=== PATIENT | female | born 1935 | race Caucasian/White ===

== ENCOUNTER 2017-02-25 05:15 | Emergency (ER) | payer MEDICARE, BC ==
[2017-02-25 05:32] VITALS: BP 183/75
[2017-02-25] MEDS ORDERED: Amoxicillin 250 MG Cap PO ONE (05:39)
--- NOTE | 2017-02-25 05:45 | EDM.PDOC ---
ED HPI GENERAL MEDICAL PROBLEM - General Chief Complaint: ENT Problem Stated Complaint: EAR ACHE Time Seen by Provider: 02/25/17 05:40 Source of Information: Reports: Patient History Limitations: Reports: No Limitations - History of Present Illness INITIAL COMMENTS - FREE TEXT/NARRATIVE: c/o episodic sharp stabbing pain in right ear all night long. Right Ear Pain Score (Numeric/FACES): 9 - Related Data Allergies Allergy/AdvReac Type Severity Reaction Status Date / Time oxycodone AdvReac Disorientat Verified 02/25/17 05:26 ion ENVIRONMENTAL Allergy Sneezing Uncoded 02/25/17 05:26 Home Meds: Home Meds Acetaminophen [Tylenol Arthritis Pain] 1 tab PO Q8H PRN 11/13/14 [History] Atenolol [Tenormin] 25 mg PO DAILY 11/13/14 [History] Calcium Carbonate/Vitamin D3 [Calcium 250+D] 1 tab PO BID 11/13/14 [History] Cranberry 1 cap PO DAILY 11/13/14 [History] Ferrous Sulfate 1 tab PO DAILY 11/13/14 [History] Fluticasone/Salmeterol [Advair 250-50 Diskus] 1 puff INH DAILY 11/13/14 [History ] Levothyroxine 25 mcg PO ACBREAKFAST 11/13/14 [History] Melatonin 3 tab PO DAILY PRN 11/13/14 [History] Multivitamin with Minerals [Multiple Vitamin] 1 tab PO DAILY 11/13/14 [History] Nitroglycerin [Nitrostat] 1 tab SL Q6H PRN 11/13/14 [History] Omeprazole [Prilosec] 20 mg PO DAILY 11/13/14 [History] Potassium Chloride [Klor-Con M10] 10 meq PO DAILY 11/13/14 [History] Venlafaxine HCl [Venlafaxine ER] 37.5 mg PO DAILY 11/13/14 [History] Celecoxib 200 mg PO DAILY PRN 05/05/16 [History] Clotrimazole/Betamethasone Dip [Lotrisone Cream] 1 applic TOP DAILY 05/05/16 [ History] Lactobacillus Acidophilus [Acidophilus] 1 tab PO DAILY 05/10/16 [History] Albuterol [Proventil HFA] 6.7 gm INH Q4H PRN 07/23/17 [History] Past Medical History Cardiovascular History: Reports: Hypertension Respiratory History: Reports: Asthma Gastrointestinal History: Reports: GERD Other Gastrointestinal History: Hamlet's ulcer, peptic ulcer stricture Genitourinary History: Reports: Chronic Renal Insuffiency [employer] History: Reports: Musculoskeletal History: Reports: Arthritis Neurological History: Reports: None Psychiatric History: Reports: None Endocrine/Metabolic History: Reports: Hypothyroidism Hematologic History: Reports: B12 Deficiency Immunologic History: Reports: None Oncologic (Cancer) History: Reports: None Other Oncologic History: skin ca Dermatologic History: Reports: None - Infectious Disease History Infectious Disease History: Reports: Chicken Pox, Measles - Past Surgical History HEENT Surgical History: Reports: Cataract Surgery Female Surgical History: Reports: Breast Biopsy, Oophorectomy Neurological Surgical History: Reports: None Musculoskeletal Surgical History: Reports: Joint Replacement, Knee Replacement Social & Family History - Family History HEENT: Reports: Glaucoma Cardiac: Reports: [place] Respiratory: Reports: Asthma GI: Reports: None : Reports: None OBGYN: Reports: None Musculoskeletal: Reports: Arthritis Neurological: Reports: None Psychiatric: Reports: None Hematologic: Reports: None Dermatologic: Reports: None Oncologic: Reports: Colon - Tobacco Use Smoking Status *Q: Former Smoker Years of Tobacco use: 20 Used Tobacco, but Quit: Yes Month Tobacco Last Used: quit 40 years ago Second Hand Smoke Exposure: No - Caffeine Use Caffeine Use: Reports: Tea - Alcohol Use Days Per Week of Alcohol Use: 0 - Recreational Drug Use Recreational Drug Use: No Drug Use in Last 12 Months: No ED ROS ENT - Review of Systems Review Of Systems: ROS reveals no pertinent complaints other than HPI. ED EXAM, ENT - Physical Exam Exam: See Below Exam Limited By: No Limitations General Appearance: Alert, WD/WN, No Apparent Distress Ears: Hearing Grossly Normal Mouth/Throat: Normal Inspection, Normal Oropharynx Head: Atraumatic Neck: Non-Tender, Full Range of Motion Respiratory/Chest: No Respiratory Distress Cardiovascular: Regular Rate, Rhythm GI/Abdominal: Soft, Non-Tender Neurological: Alert, Oriented, Normal Cognition, Normal Gait, No Motor/Sensory Deficits Psychiatric: Normal Affect, Normal Mood Skin: Warm, Dry Lymphatic: No Adenopathy Course - Vital Signs Last Recorded V/S: Last Vital Signs Temp 36.3 C 02/25/17 05:18 Pulse 88 02/25/17 05:18 Resp 18 02/25/17 05:18 BP 183/75 H 02/25/17 05:18 Pulse Ox 95 02/25/17 05:18 - Orders/Labs/Meds Meds: Medications Discontinued Medications Generic Name Dose Route Start Last Admin Trade Name Eufemia PRN Reason Stop Dose Admin Amoxicillin 250 mg 02/25/17 05:39 Amoxil PO 02/25/17 05:40 ONETIME ONE Departure - Departure Time of Disposition: 05:43 Disposition: Home, Self-Care 01 Condition: Good Clinical Impression: Serous otitis media Qualifiers: Chronicity: acute Laterality: right Recurrence: not specified as recurrent Qualified Code(s): H65.01 - Acute serous otitis media, right ear - Discharge Information Instructions: Serous Otitis Media Forms: ED Department Discharge Additional Instructions: 1) follow up at clinic rx given; amoxil 250mg tid x 30
== END 2017-02-25 05:49 | disposition home or self-care (01) ==
LOC: DL.ED 05:15
DX: H65.01 Acute serous otitis media, right ear (principal); J45.909 Unspecified asthma, uncomplicated; K21.9 Gastro-esophageal reflux disease without esophagitis; I12.9 Hypertensive chronic kidney disease with stage 1 through stage 4 chronic kidney disease, or unspecified chronic kidney disease; N18.9 Chronic kidney disease, unspecified; E03.9 Hypothyroidism, unspecified; M19.90 Unspecified osteoarthritis, unspecified site; Z98.49 Cataract extraction status, unspecified eye; Z96.659 Presence of unspecified artificial knee joint; Z91.048 Other nonmedicinal substance allergy status; Z88.5 Allergy status to narcotic agent; Z79.899 Other long term (current) drug therapy; Z87.891 Personal history of nicotine dependence
CPT/HCPCS: 99282; A9270

== ENCOUNTER 2017-09-25 07:56 | Emergency (ER) | payer MEDICARE, BC ==
[2017-09-25 08:21] VITALS: BP 193/83
[2017-09-25] MEDS ORDERED: Albuterol/Ipratropium 3.0-0.5 MG/3 ML Neb Soln NEB ONE (08:30)
--- NOTE | 2017-09-25 08:39 | EDM.PDOC ---
ED HPI GENERAL MEDICAL PROBLEM - General Chief Complaint: Respiratory Problem Stated Complaint: ? INFLUENZA Time Seen by Provider: 09/25/17 08:25 Source of Information: Reports: Patient History Limitations: Reports: No Limitations - History of Present Illness INITIAL COMMENTS - FREE TEXT/NARRATIVE: This 82 yo female patient reports to the ED due to a continued cough and increased shortness of breath. The patient reports her symptoms started on Sunday (09/22/17). The patient was seen in the [facility] yesterday, given a shot of steroid, and given a shot of Rocephin. The patient was also given a script for a Medrol dose pack and Azithromycin (which she has been taking). The patient reports she also has COPD and has been doing neb treatments 3 times per day. 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: Other Medication(s) - Related Data Allergies Allergy/AdvReac Type Severity Reaction Status Date / Time oxycodone AdvReac Disorientat Verified 02/25/17 05:26 ion ENVIRONMENTAL Allergy Sneezing Uncoded 02/25/17 05:26 Home Meds: Home Meds Acetaminophen [Tylenol Arthritis Pain] 1 tab PO Q8H PRN 11/13/14 [History] Atenolol [Tenormin] 25 mg PO DAILY 11/13/14 [History] Calcium Carbonate/Vitamin D3 [Calcium 250+D] 1 tab PO BID 11/13/14 [History] Cranberry 1 cap PO DAILY 11/13/14 [History] Ferrous Sulfate 1 tab PO DAILY 11/13/14 [History] Fluticasone/Salmeterol [Advair 250-50 Diskus] 1 puff INH DAILY 11/13/14 [History ] Levothyroxine 25 mcg PO ACBREAKFAST 11/13/14 [History] Melatonin 3 tab PO DAILY PRN 11/13/14 [History] Multivitamin with Minerals [Multiple Vitamin] 1 tab PO DAILY 11/13/14 [History] Nitroglycerin [Nitrostat] 1 tab SL Q6H PRN 11/13/14 [History] Omeprazole [Prilosec] 20 mg PO DAILY 11/13/14 [History] Potassium Chloride [Klor-Con M10] 10 meq PO DAILY 11/13/14 [History] Venlafaxine HCl [Venlafaxine ER] 37.5 mg PO DAILY 11/13/14 [History] Celecoxib 200 mg PO DAILY PRN 05/05/16 [History] Clotrimazole/Betamethasone Dip [Lotrisone Cream] 1 applic TOP DAILY 05/05/16 [ History] Albuterol [Proventil HFA] 6.7 gm INH Q4H PRN 02/25/17 [History] Azithromycin [IJD: Azithromycin] 1 tab PO DAILY 09/25/17 [History] Codeine/Promethazine HCl [Promethazine-Codeine Syrup] 1 tsp PO ASDIRECTED PRN [History] methylPREDNISolone [Medrol] 1 tab PO ASDIRECTED 09/25/17 [History] Past Medical History Cardiovascular History: Reports: Hypertension Respiratory History: Reports: Asthma, COPD Gastrointestinal History: Reports: GERD Other Gastrointestinal History: Hamlet's ulcer, peptic ulcer stricture Genitourinary History: Reports: Chronic Renal Insuffiency [employer] History: Reports: Musculoskeletal History: Reports: Arthritis Neurological History: Reports: None Psychiatric History: Reports: None Endocrine/Metabolic History: Reports: Hypothyroidism Hematologic History: Reports: B12 Deficiency Immunologic History: Reports: None Oncologic (Cancer) History: Reports: None Other Oncologic History: skin ca Dermatologic History: Reports: None - Infectious Disease History Infectious Disease History: Reports: Chicken Pox, Measles - Past Surgical History HEENT Surgical History: Reports: Cataract Surgery Female Surgical History: Reports: Breast Biopsy, Oophorectomy Neurological Surgical History: Reports: None Musculoskeletal Surgical History: Reports: Joint Replacement, Knee Replacement Social & Family History - Family History HEENT: Reports: Glaucoma Cardiac: Reports: [place] Respiratory: Reports: Asthma GI: Reports: None : Reports: None OBGYN: Reports: None Musculoskeletal: Reports: Arthritis Neurological: Reports: None Psychiatric: Reports: None Hematologic: Reports: None Dermatologic: Reports: None Oncologic: Reports: Colon - Tobacco Use Smoking Status *Q: Former Smoker Years of Tobacco use: 20 Used Tobacco, but Quit: Yes Month Tobacco Last Used: quit 40 years ago Second Hand Smoke Exposure: No - Caffeine Use Caffeine Use: Reports: Tea - Alcohol Use Days Per Week of Alcohol Use: 0 - Recreational Drug Use Recreational Drug Use: No Drug Use in Last 12 Months: No ED ROS GENERAL - Review of Systems Review Of Systems: ROS reveals no pertinent complaints other than HPI. ED EXAM, GENERAL - Physical Exam Exam: See Below Exam Limited By: No Limitations General Appearance: Alert, WD/WN, Moderate Distress Eye Exam: Bilateral Eye: EOMI, Normal Inspection, PERRL Ears: Normal External Exam, Normal Canal, Hearing Grossly Normal, Normal TMs Nose: Normal Inspection, Normal Mucosa, No Blood Throat/Mouth: Normal Inspection, Normal Lips, Normal Teeth, Normal Gums, Normal Oropharynx, Normal Voice, No Airway Compromise Head: Atraumatic, Normocephalic Neck: Normal Inspection, Supple, Non-Tender, Full Range of Motion Respiratory/Chest: Decreased Breath Sounds, Rhonchi, Wheezing Cardiovascular: Normal Peripheral Pulses, Regular Rate, Rhythm, No Edema, No Gallop, No JVD, No Murmur, No Rub GI/Abdominal: Normal Bowel Sounds, Soft, Non-Tender, No Organomegaly, No Distention, No Abnormal Bruit, No Mass (Female) Exam: Deferred Rectal (Female) Exam: Deferred Back Exam: Normal Inspection, Full Range of Motion, NT Extremities: Normal Inspection, Normal Range of Motion, Non-Tender, Normal Capillary Refill, No Pedal Edema Neurological: Alert, Oriented, CN II-XII Intact, Normal Cognition, Normal Gait, Normal Reflexes, No Motor/Sensory Deficits Psychiatric: Normal Affect, Normal Mood Skin Exam: Warm, Dry, Intact, Normal Color, No Rash Lymphatic: No Adenopathy Course - Vital Signs Last Recorded V/S: Last Vital Signs Temp 36.9 C 09/25/17 07:59 Pulse 90 09/25/17 08:40 Resp 20 09/25/17 07:59 BP 193/83 H 09/25/17 07:59 Pulse Ox 94 L 09/25/17 07:59 - Orders/Labs/Meds Orders: Active Orders 24 hr Category Date Time Status RT Aerosol Therapy [RC] ASDIRECTED Care 09/25/17 08:31 Active Chest 2V [CR] Urgent Exams 09/25/17 08:26 Taken Labs: Laboratory Tests 09/25/17 09/25/17 09/25/17 Range/Units 08:38 08:38 08:38 WBC 5.1 (5.0-10.0) 10^3/uL RBC 4.45 (4.2-5.4) 10^6/uL Hgb 13.4 (12.0-16.0) g/dL Hct 40.6 (37.0-47.0) % MCV 91.2 (80-100) fL MCH 30.1 (27.0-34.0) pg MCHC 33.0 (33.0-35.0) g/dL Plt Count 219 (150-450) 10^3/uL Neut % (Auto) 78.1 H (42.2-75.2) % Lymph % (Auto) 13.2 L (20.5-50.1) % Whitfield % (Auto) 8.5 H (2-8) % Eos % (Auto) 0.0 L (1.0-3.0) % Baso % (Auto) 0.2 (0.0-1.0) % Add Manual Diff Yes Neutrophils % (Manual) 75 (42-75) % Band Neutrophils % 5 % Lymphocytes % (Manual) 13 L (20-50) % Monocytes % (Manual) 7 (2-8) % Sodium 135 (135-145) mmol/L Potassium 4.8 (3.6-5.0) mmol/L Chloride 96 L (101-111) mmol/L Carbon Dioxide 27.0 (21.0-31.0) mmol/L Anion Gap 16.8 BUN 16 (7-18) mg/dL Creatinine 0.9 (0.6-1.3) mg/dL Est Cr Clr Drug Dosing 36.80 mL/min Estimated GFR (MDRD) 60 BUN/Creatinine Ratio 17.77 Glucose 145 H (74-105) mg/dL Lactic Acid 2.0 (0.5-2.2) mmol/L Calcium 9.0 (8.4-10.2) mg/dl Total Bilirubin 0.6 (0.2-1.0) mg/dL AST 32 (10-42) IU/L ALT 24 (10-60) IU/L Alkaline Phosphatase 40 L (42-121) IU/L Total Protein 8.2 (6.7-8.2) g/dl Albumin 3.9 (3.2-5.5) g/dl Globulin 4.3 Albumin/Globulin Ratio 0.91 Urine Color (YELLOW) Urine Appearance (CLEAR) Urine pH (5.0-9.0) Ur Specific [place] (1.005-1.030) Urine Protein (NEGATIVE) Urine Glucose (UA) (NEGATIVE) Urine Ketones (NEGATIVE) Urine Occult Blood (NEGATIVE) Urine Nitrite (NEGATIVE) Urine Bilirubin (NEGATIVE) Urine Urobilinogen (0.2-1.0) mg/dL Ur Leukocyte Esterase (NEGATIVE) Urine RBC /HPF Urine WBC (0-5/HPF) /HPF Ur Epithelial Cells /HPF Urine Bacteria (0-FEW/HPF) /HPF Urine Mucus /LPF 09/25/17 Range/Units 09:02 WBC (5.0-10.0) 10^3/uL RBC (4.2-5.4) 10^6/uL Hgb (12.0-16.0) g/dL Hct (37.0-47.0) % MCV (80-100) fL MCH (27.0-34.0) pg MCHC (33.0-35.0) g/dL Plt Count (150-450) 10^3/uL Neut % (Auto) (42.2-75.2) % Lymph % (Auto) (20.5-50.1) % Whitfield % (Auto) (2-8) % Eos % (Auto) (1.0-3.0) % Baso % (Auto) (0.0-1.0) % Add Manual Diff Neutrophils % (Manual) (42-75) % Band Neutrophils % % Lymphocytes % (Manual) (20-50) % Monocytes % (Manual) (2-8) % Sodium (135-145) mmol/L Potassium (3.6-5.0) mmol/L Chloride (101-111) mmol/L Carbon Dioxide (21.0-31.0) mmol/L Anion Gap BUN (7-18) mg/dL Creatinine (0.6-1.3) mg/dL Est Cr Clr Drug Dosing mL/min Estimated GFR (MDRD) BUN/Creatinine Ratio Glucose (74-105) mg/dL Lactic Acid (0.5-2.2) mmol/L Calcium (8.4-10.2) mg/dl Total Bilirubin (0.2-1.0) mg/dL AST (10-42) IU/L ALT (10-60) IU/L Alkaline Phosphatase (42-121) IU/L Total Protein (6.7-8.2) g/dl Albumin (3.2-5.5) g/dl Globulin Albumin/Globulin Ratio Urine Color Yellow (YELLOW) Urine Appearance Clear (CLEAR) Urine pH 6.0 (5.0-9.0) Ur Specific [place] 1.015 (1.005-1.030) Urine Protein Trace H (NEGATIVE) Urine Glucose (UA) Negative (NEGATIVE) Urine Ketones Negative (NEGATIVE) Urine Occult Blood Small H (NEGATIVE) Urine Nitrite Negative (NEGATIVE) Urine Bilirubin Negative (NEGATIVE) Urine Urobilinogen 0.2 (0.2-1.0) mg/dL Ur Leukocyte Esterase Negative (NEGATIVE) Urine RBC 0-5 /HPF Urine WBC Not seen (0-5/HPF) /HPF Ur Epithelial Cells Rare /HPF Urine Bacteria Not seen (0-FEW/HPF) /HPF Urine Mucus Not seen /LPF Meds: Medications Discontinued Medications Generic Name Dose Route Start Last Admin Trade Name Freq PRN Reason Stop Dose Admin Albuterol/Ipratropium 3 ml 09/25/17 08:30 09/25/17 08:39 Duoneb 3.0-0.5 Mg/3 Ml NEB 09/25/17 08:31 3 ml ONETIME ONE Administration Departure - Departure Time of Disposition: 09:22 Disposition: Home, Self-Care 01 Condition: Fair Clinical Impression: URI (upper respiratory infection) Qualifiers: URI type: unspecified URI Qualified Code(s): J06.9 - Acute upper respiratory infection, unspecified - Discharge Information Instructions: Upper Respiratory Infection, Adult, [id number] Forms: ED Department Discharge Care Plan Goals: The patient was advised of the examination, lab and x-ray results during the visit. The patient was encouraged to continue with the medications prescribed by her primary care facility. If the patient has any additional symptoms or concerns, the patient should follow-up with her primary care facility or return to the ED. - My Orders Last 24 Hours: My Active Orders 09/25/17 08:26 Chest 2V [CR] Urgent 09/25/17 08:31 RT Aerosol Therapy [RC] ASDIRECTED - Assessment/Plan Last 24 Hours: My Active Orders 09/25/17 08:26 Chest 2V [CR] Urgent 09/25/17 08:31 RT Aerosol Therapy [RC] ASDIRECTED
--- NOTE | 2017-09-25 09:25 | CR ---
Clinical history: 82-year-old female cough wheezing and shortness of breath. 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 Orthopedic replacement right shoulder. 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 Consultations arch of the aorta. Normal cardiac silhouette without cephalization of flow, signs of alveolar edema or dependent pleural fluid accumulation. No lung mass, hilar lymphadenopathy or focal lobar pneumonia (platelike atelectasis both lung bases). No pneumothorax.
== END 2017-09-25 09:34 | disposition home or self-care (01) ==
LOC: DL.ED 07:56
DX: J06.9 Acute upper respiratory infection, unspecified (principal); I12.9 Hypertensive chronic kidney disease with stage 1 through stage 4 chronic kidney disease, or unspecified chronic kidney disease; N18.9 Chronic kidney disease, unspecified; E03.9 Hypothyroidism, unspecified; Z88.5 Allergy status to narcotic agent; Z79.899 Other long term (current) drug therapy; Z87.891 Personal history of nicotine dependence
CPT/HCPCS: 36415; 71046; 80053; 81001; 83605; 85025; 94640; 99283; 99284

== ENCOUNTER 2020-12-10 13:07 | Emergency (ER) | payer MEDICARE, BC ==
[2020-12-10 13:36] VITALS: BP 162/53; PULSE 92
--- NOTE | 2020-12-10 13:40 | EDM.PDOC ---
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 Pt states she has minimal pain. Denies being on Aspirin or blood thinners. Denies LOC, neck pain, or any other areas of injury or pain. Pt states her arm, legs and all associated joints move and function just fine without pain. Last Tetanus vaccine <10 yrs ago per pt. Onset: Today, Sudden Location: Reports: Head, Face, Upper Extremity, Right Quality: Reports: Ache Severity: Mild Improves with: Reports: None Worsens with: Reports: None Associated Symptoms: Reports: No Other Symptoms Head Pain Score (Numeric/FACES): 4 - Related Data Allergies Allergy/AdvReac Type Severity Reaction Status Date / Time oxycodone AdvReac Disorientat Verified 12/10/20 13:38 ion ENVIRONMENTAL Allergy Sneezing Uncoded 02/25/17 05:26 Home Meds: Home Meds Acetaminophen [Tylenol Arthritis Pain] 650 mg PO Q8H PRN 11/13/14 [History] Calcium Carbonate/Vitamin D3 [Calcium 250+D] 1 tab PO BID 11/13/14 [History] Cranberry 500 mg PO DAILY 11/13/14 [History] Ferrous Sulfate 325 mg PO DAILY 11/13/14 [History] Levothyroxine 25 mcg PO ACBREAKFAST 11/13/14 [History] Multivitamin with Minerals [Multiple Vitamin] 1 tab PO DAILY 11/13/14 [History] Nitroglycerin [Nitrostat] 1 tab SL ASDIRECTED PRN 11/13/14 [History] Omeprazole [Prilosec] 20 mg PO DAILY 11/13/14 [History] Venlafaxine HCl [Venlafaxine ER] 75 mg PO DAILY 11/13/14 [History] atenoloL [Tenormin] 50 mg PO DAILY 11/13/14 [History] Celecoxib 200 mg PO DAILY PRN 05/05/16 [History] Clotrimazole/Betamethasone Dip [Lotrisone Cream] 1 applic TOP BID PRN 05/05/16 [History] Albuterol [Proventil HFA] 2 puff INH Q6HR PRN 02/25/17 [History] Furosemide 20 mg PO DAILY 10/07/19 [History] ALPRAZolam [Alprazolam] 0.5 mg PO TID PRN 05/19/20 [History] Amoxicillin 2,000 mg PO ASDIRECTED 05/19/20 [History] Cyanocobalamin (Vitamin B-12) [Cyanocobalamin Injection] 1,000 mcg INJECT ASDIRECTED 05/19/20 [History] Fluticasone Propion/Salmeterol [Advair 250-50 Diskus] 1 blister INH BID 05/19/20 [History] Potassium Chloride [Klor-Con M10] 10 meq PO DAILY 05/19/20 [History] Propylene Glycol/Peg 400 [Systane 0.3-0.4% Eye Drops] 1 drop EYEBOTH BID 05/19/20 [History] Albuterol Sulfate 1 vial INH QID PRN 05/20/20 [History] Past Medical History HEENT History: Reports: Impaired Vision Other HEENT History: wears glasses. hearing aides Cardiovascular History: Reports: High Cholesterol, Hypertension Respiratory History: Reports: Asthma, Bronchitis, Recurrent, COPD Gastrointestinal History: Reports: GERD, Hiatal Hernia Other Gastrointestinal History: Hamlet's ulcer, peptic ulcer stricture Genitourinary History: Reports: Chronic Renal Insuffiency SUBSTATION DESIGNER History: Reports: , Other (See Below) Other SUBSTATION DESIGNER History: VAGINAL PROLAPSE Musculoskeletal History: Reports: Arthritis, Osteoarthritis Neurological History: Reports: None Psychiatric History: Reports: Anxiety Endocrine/Metabolic History: Reports: Hypothyroidism, Obesity/BMI 30+ Hematologic History: Reports: Anemia, B12 Deficiency, Iron Deficiency Immunologic History: Reports: None Oncologic (Cancer) History: Reports: Other (See Below) Other Oncologic History: skin ca Dermatologic History: Reports: Other (See Below) Other Dermatologic History: skin cancer squamas cell - Infectious Disease History Infectious Disease History: Reports: Chicken Pox, Measles, Shingles - Past Surgical History HEENT Surgical History: Reports: Adenoidectomy, Cataract Surgery, Tonsillectomy Cardiovascular Surgical History: Reports: None Respiratory Surgical History: Reports: None GI Surgical History: Reports: Appendectomy, Colonoscopy, EGD Female Surgical History: Reports: Breast Biopsy, Cystoscopy, Oophorectomy, Tubal Ligation Endocrine Surgical History: Reports: None Neurological Surgical History: Reports: None Musculoskeletal Surgical History: Reports: Arthroscopic Knee, Joint Replacement, Knee Replacement, Shoulder Surgery Other Musculoskeletal Surgeries/Procedures:: Total knee bilaterally. right shoulder Oncologic Surgical History: Reports: Other (See Below) Other Oncologic Surgeries/Procedures: SKIN LESION EXCISION Dermatological Surgical History: Reports: None Social & Family History - Family History HEENT: Reports: Glaucoma Cardiac: Reports: [place] Respiratory: Reports: Asthma GI: Reports: None : Reports: None OBGYN: Reports: None Musculoskeletal: Reports: Arthritis Neurological: Reports: None Psychiatric: Reports: None Hematologic: Reports: None Dermatologic: Reports: None Oncologic: Reports: Colon - Tobacco Use Tobacco Use Status *Q: Never Tobacco User - Caffeine Use Caffeine Use: Reports: Tea Other Caffeine Use: 3 cups of tea - Recreational Drug Use Recreational Drug Use: No - Living Situation & Occupation Living situation: Reports: , with Family Occupation: Retired ED ROS GENERAL - Review of Systems Review Of Systems: Comprehensive ROS is negative, except as noted in HPI. ED EXAM, SKIN/RASH Exam: See Below Exam Limited By: No Limitations General Appearance: Alert, WD/WN, No Apparent Distress Eye Exam: Bilateral Eye: EOMI, Normal Inspection, PERRL Ears: Normal External Exam, Normal Canal, Hearing Grossly Normal, Normal TMs Nose: Normal Inspection, Normal Mucosa, No Blood Throat/Mouth: Normal Inspection, Normal Lips, Normal Teeth, Normal Gums, Normal Oropharynx, Normal Voice, No Airway Compromise Head: Normocephalic, Other (2cm linear vertical right lateral forehead laceration to depth of subcutaneous tissue. Rt forehead superficial skin tear 2cm. ) Neck: Normal Inspection, Supple, Non-Tender, Full Range of Motion Respiratory/Chest: No Respiratory Distress, Lungs Clear, No Accessory Muscle Use, Chest Non-Tender, Decreased Breath Sounds Cardiovascular: Normal Peripheral Pulses, Regular Rate, Rhythm Back Exam: Normal Inspection, Full Range of Motion Extremities: Normal Range of Motion, Non-Tender, No Pedal Edema, Normal Capillary Refill, Other (Rt elbow with 2cm superficial skin tear) Neurological: Alert, Oriented, CN II-XII Intact, Normal Cognition, Normal Gait, No Motor/Sensory Deficits Psychiatric: Normal Affect, Normal Mood Skin: Warm, Dry ED SKIN PROCEDURES - Laceration/Wound Repair Right Lateral Forehead Appearance: Subcutaneous, Linear, Clean Distal NVT: Neuro & Vascular Intact Anesthetic Type: Local Local Anesthesia - Lidocaine (Xylocaine): 1% Plain Local Anesthetic Volume: 5cc Skin Prep: Saline, Sterile Drape Exploration/Debridement/Repair: Wound Explored, In a Bloodless Field, Explored to Base, Minimal Debridement, Minimally Undermined Closed with: Sutures Lac/Wound length In cm: 2 Suture Size: 4-0 # of Sutures: 3 Suture Type: Nylon, Interrupted Drain Placement: No Sterile Dressing Applied: Nurse Tetanus Status Addressed: Yes Complications: No Course - Vital Signs Last Recorded V/S: Last Vital Signs Temp 96.8 F L 12/10/20 13:35 Pulse 92 12/10/20 13:35 Resp 16 12/10/20 13:35 BP 162/53 H 12/10/20 13:35 Pulse Ox 98 12/10/20 13:35 - Orders/Labs/Meds Meds: Medications Discontinued Medications Generic Name Dose Route Start Last Admin Trade Name Eufemia PRN Reason Stop Dose Admin Bacitracin 1 dose 12/10/20 13:44 12/10/20 14:07 Bacitracin Oint 1 Gm U/D Packet TOP 12/10/20 13:45 1 dose ONETIME ONE Administration Lidocaine HCl 30 ml 12/10/20 13:44 12/10/20 14:07 Lidocaine 1% 30 Ml Sdv INJECT 12/10/20 13:45 30 ml ONETIME ONE Administration - Re-Assessments/Exams Free Text/Narrative Re-Assessment/Exam: 12/10/20 14:14 Skin tears steri-stripped and dressed by RN. Departure - Departure Time of Disposition: 14:06 Disposition: Home, Self-Care 01 Condition: Good Clinical Impression: Laceration of forehead without complication Qualifiers: Encounter type: initial encounter Qualified Code(s): S01.81XA - Laceration without foreign body of other part of head, initial encounter Fall on steps Qualifiers: Encounter type: initial encounter Qualified Code(s): W10.8XXA - Fall (on) (from) other stairs and steps, initial encounter - Discharge Information *PRESCRIPTION DRUG MONITORING PROGRAM REVIEWED*: Not Applicable *COPY OF PRESCRIPTION DRUG MONITORING REPORT IN PATIENT JET: Not Applicable Instructions: Laceration Care, Adult Forms: ED Department Discharge Additional Instructions: Follow up in clinic in 7 to 10 days for suture removal. Return to ER if any signs of would infection develop. Sepsis Event Note (ED) - Evaluation Sepsis Screening Result: No Definite Risk - Focused Exam Vital Signs: Vital Signs Temp Pulse Resp BP Pulse Ox 12/10/20 13:35 96.8 F L 92 16 162/53 H 98
[2020-12-10] MEDS ORDERED: Bacitracin Oint 1 GM U/D Packet TOP ONE (13:44)
[2020-12-10] MEDS ORDERED: Lidocaine 1% 30 ML SDV INJECT ONE (13:44)
== END 2020-12-10 14:13 | disposition home or self-care (01) ==
LOC: DL.ED 13:07
DX: S01.81XA Laceration without foreign body of other part of head, initial encounter (principal); E78.00 Pure hypercholesterolemia, unspecified; J44.9 Chronic obstructive pulmonary disease, unspecified; K21.9 Gastro-esophageal reflux disease without esophagitis; I12.9 Hypertensive chronic kidney disease with stage 1 through stage 4 chronic kidney disease, or unspecified chronic kidney disease; N18.9 Chronic kidney disease, unspecified; E03.9 Hypothyroidism, unspecified; E66.9 Obesity, unspecified; Z68.24 Body mass index [BMI] 24.0-24.9, adult; Z88.5 Allergy status to narcotic agent; Z79.899 Other long term (current) drug therapy; W10.9XXA Fall (on) (from) unspecified stairs and steps, initial encounter
CPT/HCPCS: 12011; 99282; 99282-25

== ENCOUNTER 2021-02-06 00:07 | Emergency (ER) | payer MEDICARE, BC ==
[2021-02-06] MEDS ORDERED: Azithromycin 250 MG Tab PO ONE ×2 (00:08→02:05)
[2021-02-06] MEDS ORDERED: Aspirin 81 MG Tab.Chew PO ONE (00:31)
[2021-02-06] MEDS ORDERED: Nitroglycerin 0.4 MG Tab.SL SL ONE (00:31)
[2021-02-06 01:14] LABS: ANION GAP 13.9 mEq/L (7-13); CHLORIDE,CL 102 mmol/L (98-107); SODIUM,NA 139 mmol/L (136-145)
[2021-02-06 01:25] VITALS: BP 189/73; PULSE 104
[2021-02-06 01:31] LABS: CORONAVIRUS COVID-19 NAA NEGATIVE (NEGATIVE)
--- NOTE | 2021-02-06 01:32 | CR ---
PROCEDURE INFORMATION: Exam: XR Chest Exam date and time: 02/06/2021 1:03 AM Age: 85 years old Clinical indication: Other: Chest pain TECHNIQUE: Imaging protocol: XR of the chest. Views: 1 view. COMPARISON: CR Chest 2V 09/25/2017 8:45 AM FINDINGS: Lungs: Unremarkable. No consolidation. Pleural spaces: Unremarkable. No pleural effusion. No pneumothorax. Heart/Mediastinum: Large hiatal hernia. Bones/joints: Unremarkable. IMPRESSION: No acute cardiopulmonary disease.
[2021-02-06] MEDS ORDERED: Sodium Chloride 0.9% 1,000 ML IV ONE (01:33)
[2021-02-06] MEDS ORDERED: GI Cocktail Oral Solution 30 ML PO ONE (01:36)
[2021-02-06] MEDS ORDERED: Famotidine 20 MG/2 ML SDV IVPUSH ONE (01:48)
--- NOTE | 2021-02-06 02:03 | EDM.PDOC ---
ED HPI GENERAL MEDICAL PROBLEM - General Chief Complaint: Cardiovascular Problem Stated Complaint: HEART, BREATHING, BLOOD PRESSURE HIGH Time Seen by Provider: 02/06/21 00:45 Source of Information: Reports: Patient, Family, RN, RN Notes Reviewed History Limitations: Reports: No Limitations - History of Present Illness INITIAL COMMENTS - FREE TEXT/NARRATIVE: Patient is an 85-year-old female who presents to ER with her daughter with complaint of midsternal chest pain that began earlier this evening. Patient states when she went to bed approximately 10:00pm she had some feeling of indigestion/epigastric pain. She states she took Tums and other [id number] indigestion medications. These did not seem to help. She states pain is increased when sitting or standing. States she feels better when she is laying down. Patient states history of significant hiatal hernia and troubles with indigestion. History of COPD. Admits to some intermittent shortness of breath. Denies fever prior to ER visit. Upon arrival to the ER patient has a temperature of 99.3. Denies cough, nausea, vomiting, diarrhea. Patient denies any radiation of the pain. She states the pain started epigastric and has moved up midsternal but has not radiated to the arms, neck, jaw. She states she can feel the pain in the back from time to time. Patient states she did have Covid in May 2020, was fully vaccinated for Covid. Onset: Today, Sudden Upper Chest Pain Score (Numeric/FACES): 5 - Related Data Allergies Allergy/AdvReac Type Severity Reaction Status Date / Time oxycodone AdvReac Disorientat Verified 02/06/21 01:25 ion ENVIRONMENTAL Allergy Sneezing Uncoded 02/06/21 01:25 Home Meds: Home Meds Acetaminophen [Tylenol Arthritis Pain] 650 mg PO Q8H PRN 11/13/14 [History] Calcium Carbonate/Vitamin D3 [Calcium 250+D] 1 tab PO BID 11/13/14 [History] Cranberry 500 mg PO DAILY 11/13/14 [History] Ferrous Sulfate 325 mg PO DAILY 11/13/14 [History] Levothyroxine 25 mcg PO ACBREAKFAST 11/13/14 [History] Omeprazole [Prilosec] 20 mg PO DAILY 11/13/14 [History] Venlafaxine HCl [Venlafaxine ER] 75 mg PO DAILY 11/13/14 [History] Celecoxib 200 mg PO DAILY PRN 05/05/16 [History] Clotrimazole/Betamethasone Dip [Lotrisone Cream] 1 applic TOP BID PRN 05/05/16 [History] Albuterol [Proventil HFA] 2 puff INH Q6HR PRN 02/25/17 [History] Furosemide 20 mg PO DAILY 10/07/19 [History] ALPRAZolam [Alprazolam] 0.5 mg PO TID PRN 05/19/20 [History] Amoxicillin 2,000 mg PO ASDIRECTED 05/19/20 [History] Cyanocobalamin (Vitamin B-12) [Cyanocobalamin Injection] 1,000 mcg INJECT ASDIRECTED 05/19/20 [History] Fluticasone Propion/Salmeterol [Advair 250-50 Diskus] 1 blister INH BID 05/19/20 [History] Potassium Chloride [Klor-Con M10] 10 meq PO DAILY 05/19/20 [History] Propylene Glycol/Peg 400 [Systane 0.3-0.4% Eye Drops] 1 drop EYEBOTH BID 05/19/20 [History] Albuterol Sulfate 1 vial INH QID PRN 05/20/20 [History] Diltiazem HCl [Diltiazem 24Hr Cd] 180 mg PO 02/06/21 [History] Multivitamin 1 each PO 02/06/21 [History] Nitroglycerin [Nitrostat] 02/06/21 [History] Pramipexole [Mirapex] 1 mg PO DAILY 02/06/21 [History] Past Medical History HEENT History: Reports: Impaired Vision Other HEENT History: wears glasses. hearing aides Cardiovascular History: Reports: High Cholesterol, Hypertension Respiratory History: Reports: Asthma, Bronchitis, Recurrent, COPD Gastrointestinal History: Reports: GERD, Hiatal Hernia Other Gastrointestinal History: Hamlet's ulcer, peptic ulcer stricture Genitourinary History: Reports: Chronic Renal Insuffiency [employer] SUPERVISOR History: Reports: , Other (See Below) Other [employer] SUPERVISOR History: VAGINAL PROLAPSE Musculoskeletal History: Reports: Arthritis, Osteoarthritis Neurological History: Reports: None Psychiatric History: Reports: Anxiety Endocrine/Metabolic History: Reports: Hypothyroidism, Obesity/BMI 30+ Hematologic History: Reports: Anemia, B12 Deficiency, Iron Deficiency Immunologic History: Reports: None Oncologic (Cancer) History: Reports: Other (See Below) Other Oncologic History: skin ca Dermatologic History: Reports: Other (See Below) Other Dermatologic History: skin cancer squamas cell - Infectious Disease History Infectious Disease History: Reports: Chicken Pox, Measles, Shingles - Past Surgical History HEENT Surgical History: Reports: Adenoidectomy, Cataract Surgery, Tonsillectomy Cardiovascular Surgical History: Reports: None Respiratory Surgical History: Reports: None GI Surgical History: Reports: Appendectomy, Colonoscopy, EGD Female Surgical History: Reports: Breast Biopsy, Cystoscopy, Oophorectomy, Tubal Ligation Endocrine Surgical History: Reports: None Neurological Surgical History: Reports: None Musculoskeletal Surgical History: Reports: Arthroscopic Knee, Joint Replacement, Knee Replacement, Shoulder Surgery Other Musculoskeletal Surgeries/Procedures:: Total knee bilaterally. right shoulder Oncologic Surgical History: Reports: Other (See Below) Other Oncologic Surgeries/Procedures: SKIN LESION EXCISION Dermatological Surgical History: Reports: None Social & Family History - Family History HEENT: Reports: Glaucoma Cardiac: Reports: CO Respiratory: Reports: Asthma GI: Reports: None : Reports: None OBGYN: Reports: None Musculoskeletal: Reports: Arthritis Neurological: Reports: None Psychiatric: Reports: None Hematologic: Reports: None Dermatologic: Reports: None Oncologic: Reports: Colon - Caffeine Use Caffeine Use: Reports: Tea Other Caffeine Use: 3 cups of tea - Living Situation & Occupation Living situation: Reports: , with Family Occupation: Retired ED ROS GENERAL - Review of Systems Review Of Systems: Comprehensive ROS is negative, except as noted in HPI. ED EXAM, GENERAL - Physical Exam Exam: See Below Exam Limited By: No Limitations General Appearance: Alert, WD/WN, No Apparent Distress Eye Exam: Bilateral Eye: EOMI, Normal Inspection Ears: Normal External Exam, Hearing Grossly Normal Nose: Normal Inspection Throat/Mouth: Normal Inspection, Normal Voice, No Airway Compromise Head: Atraumatic, Normocephalic Neck: Normal Inspection, Supple, Non-Tender, Full Range of Motion Respiratory/Chest: No Respiratory Distress, No Accessory Muscle Use, Chest Non- Tender, Decreased Breath Sounds Cardiovascular: Normal Peripheral Pulses, No Edema, No Gallop, No JVD, No Murmur, No Rub, Tachycardia Peripheral Pulses: 2+: Radial (L), Radial (R) GI/Abdominal: Normal Bowel Sounds, Soft, Non-Tender (Female) Exam: Deferred Rectal (Female) Exam: Deferred Back Exam: Normal Inspection, Full Range of Motion, NT Extremities: Normal Inspection, Normal Range of Motion, Non-Tender, Normal Capillary Refill, No Pedal Edema Neurological: Alert, Oriented, CN II-XII Intact, Normal Cognition, Normal Gait, Normal Reflexes, No Motor/Sensory Deficits Psychiatric: Normal Affect, Normal Mood Skin Exam: Warm, Dry, Intact, Normal Color, No Rash Lymphatic: No Adenopathy #1 Interpretation EKG Date: 02/06/21 Time: 00:21 Rhythm: NSR Rate (Beats/Min): 98 [place]: LAD-Left [place] Deviation P-Wave: Present QRS: Normal ST-T: Normal QT: Normal Comparison: NA - No Prior EKG Course - Vital Signs Last Recorded V/S: Last Vital Signs Temp 99.3 F 02/06/21 01:10 Pulse 104 H 02/06/21 01:10 Resp 26 H 02/06/21 01:10 BP 189/73 H 02/06/21 01:10 Pulse Ox 91 L 02/06/21 01:10 - Orders/Labs/Meds Orders: Active Orders 24 hr Category Date Time Status EKG Documentation Completion [RC] STAT Care 02/06/21 00:29 Active CULTURE BLOOD [BC] Stat Lab 02/06/21 01:08 Received CULTURE BLOOD [BC] Stat Lab 02/06/21 01:14 Received REFLEX LACTIC ACID YES OR NO [CHEM] Routine Lab 02/06/21 01:25 Received UA RFX JOYCE AND CULT IF INDIC [URIN] Stat Lab 02/06/21 00:31 Ordered Blood Culture x2 Reflex Set [OM.PC] Stat Oth 02/06/21 00:30 Ordered Labs: Laboratory Tests 02/06/21 02/06/21 02/06/21 Range/Units 00:40 00:40 00:40 WBC 11.5 H (5.0-10.0) 10^3/uL RBC 4.12 L (4.2-5.4) 10^6/uL Hgb 12.0 (12.0-16.0) g/dL Hct 37.2 (37.0-47.0) % MCV 90.3 (80-100) fL MCH 29.1 (27.0-34.0) pg MCHC 32.3 L (33.0-35.0) g/dL Plt Count 231 (150-450) 10^3/uL Neut % (Auto) 80.5 H (42.2-75.2) % Lymph % (Auto) 9.6 L (20.5-50.1) % Door % (Auto) 8.6 H (2-8) % Eos % (Auto) 1.0 (1.0-3.0) % Baso % (Auto) 0.3 (0.0-1.0) % PT 10.2 (9.0-12.0) SEC INR 1.0 (0.9-1.2) D-Dimer, Quantitative (0-400) ng/mL Sodium 139 (136-145) mmol/L Potassium 3.9 (3.5-5.1) mmol/L Chloride 102 (98-107) mmol/L Carbon Dioxide 27 (21-32) mmol/L Anion Gap 13.9 H (7-13) mEq/L BUN 17 (7-18) mg/dL Creatinine 0.89 (0.55-1.02) mg/dL Est Cr Clr Drug Dosing TNP Estimated GFR (MDRD) 60 BUN/Creatinine Ratio 19.1 (No establ ref range) Glucose 116 H (70-99) mg/dL Lactic Acid (0.4-2.0) mmol/L Calcium 8.6 (8.5-10.1) mg/dL Total Bilirubin 0.1 L (0.2-1.0) mg/dL AST 21 (15-37) U/L ALT 25 (14-59) U/L Alkaline Phosphatase 71 (46-116) U/L Troponin I High Sens 11 (<=51) pg/mL B-Natriuretic Peptide 34 (0-100) pg/ml Total Protein 7.0 (6.4-8.2) g/dL Albumin 3.2 L (3.4-5.0) g/dL Globulin 3.8 Albumin/Globulin Ratio 0.84 Influenza Type A RNA (NEGATIVE) Influenza Type B RNA (NEGATIVE) SARS-CoV-2 RNA ([facility]) (NEGATIVE) 02/06/21 02/06/21 02/06/21 Range/Units 00:40 00:40 00:43 WBC (5.0-10.0) 10^3/uL RBC (4.2-5.4) 10^6/uL Hgb (12.0-16.0) g/dL Hct (37.0-47.0) % MCV (80-100) fL MCH (27.0-34.0) pg MCHC (33.0-35.0) g/dL Plt Count (150-450) 10^3/uL Neut % (Auto) (42.2-75.2) % Lymph % (Auto) (20.5-50.1) % Door % (Auto) (2-8) % Eos % (Auto) (1.0-3.0) % Baso % (Auto) (0.0-1.0) % PT (9.0-12.0) SEC INR (0.9-1.2) D-Dimer, Quantitative 531 H (0-400) ng/mL Sodium (136-145) mmol/L Potassium (3.5-5.1) mmol/L Chloride (98-107) mmol/L Carbon Dioxide (21-32) mmol/L Anion Gap (7-13) mEq/L BUN (7-18) mg/dL Creatinine (0.55-1.02) mg/dL Est Cr Clr Drug Dosing Estimated GFR (MDRD) BUN/Creatinine Ratio (No establ ref range) Glucose (70-99) mg/dL Lactic Acid 2.4 H* (0.4-2.0) mmol/L Calcium (8.5-10.1) mg/dL Total Bilirubin (0.2-1.0) mg/dL AST (15-37) U/L ALT (14-59) U/L Alkaline Phosphatase (46-116) U/L Troponin I High Sens (<=51) pg/mL B-Natriuretic Peptide (0-100) pg/ml Total Protein (6.4-8.2) g/dL Albumin (3.4-5.0) g/dL Globulin Albumin/Globulin Ratio Influenza Type A RNA Negative (NEGATIVE) Influenza Type B RNA Negative (NEGATIVE) SARS-CoV-2 RNA ([facility]) Negative (NEGATIVE) Meds: Medications Discontinued Medications Generic Name Dose Route Start Last Admin Trade Name Freq PRN Reason Stop Dose Admin Al Hydroxide/Mg Hydroxide 30 ml 02/06/21 01:36 02/06/21 02:27 Gi Cocktail Oral Solution 30 Ml PO 02/06/21 01:37 30 ml ONETIME ONE Administration Aspirin 324 mg 02/06/21 00:31 02/06/21 00:37 Aspirin 81 Mg Tab.Chew PO 02/06/21 00:32 324 mg ONETIME ONE Administration Azithromycin 500 mg 02/06/21 02:05 02/06/21 02:18 Azithromycin 250 Mg Tab PO 02/06/21 02:06 500 mg ONETIME ONE Administration Azithromycin Confirm 02/06/21 02:29 02/06/21 02:15 Azithromycin 250 Mg Tab Administered 02/06/21 02:30 500 mg Dose Administration 500 mg .ROUTE .STK-MED ONE Famotidine 20 mg 02/06/21 01:48 02/06/21 02:20 Famotidine 20 Mg/2 Ml Sdv IVPUSH 02/06/21 01:49 20 mg ONETIME ONE Administration Sodium Chloride 1,000 mls @ 999 mls/hr 02/06/21 01:33 02/06/21 02:13 Normal Saline IV 02/06/21 02:33 999 mls/hr .BOLUS ONE Administration Nitroglycerin 0.4 mg 02/06/21 00:31 02/06/21 00:37 Nitroglycerin 0.4 Mg Tab.Sl SL 02/06/21 00:32 0.4 mg Q5M ONE Administration - Radiology Interpretation Free Text/Narrative:: Chest x-ray: PROCEDURE INFORMATION: Exam: XR Chest Exam date and time: 02/06/2021 1:03 AM Age: 85 years old Clinical indication: Other: Chest pain TECHNIQUE: Imaging protocol: XR of the chest. Views: 1 view. COMPARISON: CR Chest 2V 09/25/2017 8:45 AM FINDINGS: Lungs: Unremarkable. No consolidation. Pleural spaces: Unremarkable. No pleural effusion. No pneumothorax. Heart/Mediastinum: Large hiatal hernia. Bones/joints: Unremarkable. IMPRESSION: No acute cardiopulmonary disease. Thank you for allowing us to participate in the care of your patient. Dictated and Authenticated by: Kareem Gomez MD 02/06/2021 1:32 AM Central Time ([place] & [place]) See radiologist report - Re-Assessments/Exams Free Text/Narrative Re-Assessment/Exam: 02/06/21 02:03 Discussed labs and diagnostics with patient and her daughter who is a nurse at [facility]. Patient and daughter are comfortable with receiving fluids for the elevated lactic acid, treating with azithromycin for possible impending pneumonia. Discussed the D-dimer level with the patient and the daughter will also feel comfortable with not CT in the chest at this time. With the patient's respiratory status and oxygen saturation of 95%, there is decreased risk of PE. Given the patient's past history of Covid, history of COPD, and given her age I would expect this is a normal D-dimer for this patient. Patient will follow up in the clinic next week, or will return to the ER if any worsening of symptoms this weekend. Departure - Departure Time of Disposition: 03:23 Disposition: Home, Self-Care 01 Reason for Transfer *Q: Other Condition: Good Clinical Impression: Acid indigestion GERD (gastroesophageal reflux disease) Qualifiers: Esophagitis presence: without esophagitis Qualified Code(s): K21.9 - Gastro- esophageal reflux disease without esophagitis Pneumonia Qualifiers: Pneumonia type: due to unspecified organism Laterality: left Lung location: lower lobe of lung Qualified Code(s): J18.9 - Pneumonia, unspecified organism Instructions: Indigestion, [id number], Food Choices for Gastroesophageal Reflux Disease, Adult, [id number], Gastroesophageal Reflux Disease, Adult, [id number], Community-Acquired Pneumonia, Adult, [id number] Forms: ED Department Discharge Additional Instructions: Rx: Azithromycin 250 mg once daily for 4 days (1 sent home, prescription for 3, first dose of 500 given in the ER) Return to the ER with any worsening of symptoms Follow-up with your primary care provider next week May use Prilosec [id number] as directed Sepsis Event Note (ED) - Evaluation Sepsis Screening Result: No Definite Risk - Focused Exam Vital Signs: Vital Signs Temp Pulse Resp BP BP Pulse Ox 02/06/21 01:10 99.3 F 104 H 26 H 189/73 H 91 L 02/06/21 00:37 162/57 H - My Orders Last 24 Hours: My Active Orders 02/06/21 00:29 EKG Documentation Completion [RC] STAT 02/06/21 00:30 Blood Culture x2 Reflex Set [OM.PC] Stat 02/06/21 00:31 UA RFX JOYCE AND CULT IF INDIC [URIN] Stat 02/06/21 01:08 CULTURE BLOOD [BC] Stat 02/06/21 01:14 CULTURE BLOOD [BC] Stat 02/06/21 01:25 REFLEX LACTIC ACID YES OR NO [CHEM] Routine - Assessment/Plan Last 24 Hours: My Active Orders 02/06/21 00:29 EKG Documentation Completion [RC] STAT 02/06/21 00:30 Blood Culture x2 Reflex Set [OM.PC] Stat 02/06/21 00:31 UA RFX JOYCE AND CULT IF INDIC [URIN] Stat 02/06/21 01:08 CULTURE BLOOD [BC] Stat 02/06/21 01:14 CULTURE BLOOD [BC] Stat 02/06/21 01:25 REFLEX LACTIC ACID YES OR NO [CHEM] Routine
[2021-02-06] MEDS ORDERED: Azithromycin 250 MG Tab ONE (02:29)
== END 2021-02-06 03:23 | disposition home or self-care (01) ==
LOC: DL.ED 00:07
DX: J18.9 Pneumonia, unspecified organism (principal); K21.9 Gastro-esophageal reflux disease without esophagitis; K30 Functional dyspepsia; E78.00 Pure hypercholesterolemia, unspecified; I10 Essential (primary) hypertension; J44.9 Chronic obstructive pulmonary disease, unspecified; E03.9 Hypothyroidism, unspecified; E66.9 Obesity, unspecified; Z68.30 Body mass index [BMI] 30.0-30.9, adult; Z88.5 Allergy status to narcotic agent; Z91.09 Other allergy status, other than to drugs and biological substances; Z79.899 Other long term (current) drug therapy; Z20.822 Contact with and (suspected) exposure to COVID-19
CPT/HCPCS: 0240U; 36415; 71045; 80053; 83605; 83880; 84484; 85025; 85379; 85610; 87040; 93005; 96374; 99285; A9270; J3490; J7030

== ENCOUNTER 2021-08-26 17:04 | Emergency (ER) | payer MEDICARE, BC ==
[2021-08-26 17:36] VITALS: BP 173/70; PULSE 107
[2021-08-26 19:29] LABS: ANION GAP 19.9 mEq/L (7-13)
[2021-08-26] MEDS ORDERED: Potassium Chloride 10 MEQ Tab.ER PO ONE (19:38)
[2021-08-26] MEDS ORDERED: Sodium Chloride 0.9% 1,000 ML IV ONE ×2 (19:38→21:37)
[2021-08-26] MEDS ORDERED: Iopamidol 612 MG/ML 100 ML Bottle IVPUSH ONE (22:01)
== END 2021-08-27 00:08 | disposition home or self-care (01) ==
LOC: DL.ED 17:04
DX: R07.89 Other chest pain (principal); E87.2 Acidosis; E78.00 Pure hypercholesterolemia, unspecified; I10 Essential (primary) hypertension; J44.9 Chronic obstructive pulmonary disease, unspecified; K21.9 Gastro-esophageal reflux disease without esophagitis; E03.9 Hypothyroidism, unspecified; E66.9 Obesity, unspecified; Z68.26 Body mass index [BMI] 26.0-26.9, adult; Z88.5 Allergy status to narcotic agent; Z88.8 Allergy status to other drugs, medicaments and biological substances; Z79.899 Other long term (current) drug therapy
CPT/HCPCS: 36415; 74176; 80053; 81001; 83605; 84484; 85025; 99285; A9270; J7030; Q9967

== ENCOUNTER 2022-09-25 21:17 | Emergency (ER) | payer MEDICARE, BC ==
[2022-09-25 22:39] LABS: ANION GAP 13.6 mEq/L (7-13); CHLORIDE,CL 97 mmol/L (98-107); SODIUM,NA 134 mmol/L (136-145)
[2022-09-25 22:41] LABS: ESTIMATED GFR 65 mL/min (>=60)
[2022-09-25 23:08] VITALS: BP 208/97; PULSE 102
== END 2022-09-25 23:35 | disposition home or self-care (01) ==
LOC: DL.ED 21:17
DX: I12.9 Hypertensive chronic kidney disease with stage 1 through stage 4 chronic kidney disease, or unspecified chronic kidney disease (principal); N18.9 Chronic kidney disease, unspecified; D63.1 Anemia in chronic kidney disease; E78.00 Pure hypercholesterolemia, unspecified; J45.909 Unspecified asthma, uncomplicated; K21.9 Gastro-esophageal reflux disease without esophagitis; E03.9 Hypothyroidism, unspecified; Z88.5 Allergy status to narcotic agent; Z91.09 Other allergy status, other than to drugs and biological substances; Z79.899 Other long term (current) drug therapy; Z86.16 Personal history of COVID-19
CPT/HCPCS: 36415; 70450; 80053; 83605; 83880; 84484; 85025; 93005; 93010; 99284

== ENCOUNTER 2022-09-28 21:29 | Inpatient (IN) | payer MEDICARE, BC ==
[2022-09-28] MEDS ORDERED: Albuterol/Ipratropium 3.0-0.5 MG/3 ML Neb Soln NEB ONE (21:44)
[2022-09-28] MEDS ORDERED: Furosemide 40 MG/4 ML VIAL IVPUSH ONE (22:04)
[2022-09-28 22:34] LABS: ANION GAP 19.3 mEq/L (7-13); CHLORIDE,CL 93 mmol/L (98-107); SODIUM,NA 134 mmol/L (136-145)
[2022-09-28 22:40] LABS: ESTIMATED GFR 50 mL/min (>=60)
[2022-09-28] MEDS ORDERED: cefTRIAXone 2 GM Vial IVPUSH ONE (23:02)
[2022-09-28 23:15] LABS: CORONAVIRUS COVID-19 NAA NEGATIVE (NEGATIVE); RESPIRATORY SYNCYTIAL VIR NAA NEGATIVE (NEGATIVE)
[2022-09-29] MEDS ORDERED: Azithromycin 500 MG in Sodium Chloride 0.9% 250 ML IV ONE (02:04)
[2022-09-29] MEDS ORDERED: methylPREDNISolone Sodium Succinate 125 MG/2 ML SDV IVPUSH ONE (02:09)
[2022-09-29] MEDS ORDERED: Magnesium Sulfate/Water 2 GM in Premix Bag 1 BAG IV ONE (02:11)
[2022-09-29] MEDS ORDERED: 50% Dextrose in Water 50 ML Syringe IVPUSH PRN (02:12)
[2022-09-29] MEDS ORDERED: Glucagon,Human Recombinant 1 MG Vial IM PRN (02:12)
[2022-09-29] MEDS ORDERED: Bisacodyl 5 MG Tab PO PRN (02:15)
[2022-09-29] MEDS ORDERED: HYDROmorphone 0.5 MG/0.5 ML Syringe IVPUSH PRN (02:15)
[2022-09-29] MEDS ORDERED: Acetaminophen/HYDROcodone 325-5 MG Tab PO PRN (02:15)
[2022-09-29] MEDS ORDERED: Ondansetron 4 MG/2 ML SDV IVPUSH PRN (02:15)
[2022-09-29] MEDS ORDERED: Sodium Chloride 0.9% 10 ML Syringe FLUSH PRN (02:15)
[2022-09-29] MEDS ORDERED: Acetaminophen 325 MG Tab PO PRN (02:15)
[2022-09-29] MEDS ORDERED: Sodium Chloride 0.9% 250 ML IV SCH (02:15)
[2022-09-29] MEDS ORDERED: Polyethylene Glycol 3350 Powder 17 GM Packet PO PRN (02:15)
[2022-09-29] MEDS ORDERED: Magnesium Hydroxide 400 MG/5 ML Susp 30 ML Cup PO PRN (02:15)
[2022-09-29] MEDS ORDERED: Potassium Chloride 20 MEQ in Premix Bag 1 BAG IV ONE ×2 (02:25→10:00)
[2022-09-29] MEDS ORDERED: Diclofenac Sodium 1% Gel 100 GM Tube TOP PRN (02:26)
[2022-09-29] MEDS ORDERED: Betamethasone Dipropionate/Clotrimazole 0.05-1% Crm 15 GM Tube TOP PRN (02:26)
[2022-09-29] MEDS ORDERED: Ziprasidone Mesylate 20 MG Vial IM PRN (02:33)
[2022-09-29] MEDS: Levothyroxine 25 MCG Tab PO SCH (06:37)
[2022-09-29] MEDS: Insulin Lispro 100 Units/ML 3 ML Vial SUBCUT SCH ×3 (08:07→17:06)
[2022-09-29] MEDS: Pantoprazole 40 MG Tab.CR PO SCH (08:51)
[2022-09-29] MEDS: Venlafaxine 37.5 MG Cap.ER PO SCH (08:52)
[2022-09-29] MEDS: Saccharomyces Boulardii (Probiotic) 250 MG Cap PO SCH ×2 (08:52→20:22)
[2022-09-29] MEDS: Diltiazem 120 MG Cap.CD PO SCH (08:53)
[2022-09-29] MEDS: Calcium Carbonate/Vitamin D3 1250 MG-5 MCG Tab PO SCH ×2 (08:53→20:22)
[2022-09-29] MEDS: methylPREDNISolone Sodium Succinate 40 MG/1 ML SDV IVPUSH SCH ×3 (08:53→20:28)
[2022-09-29] MEDS: Multivitamin Tab PO SCH (08:53)
[2022-09-29] MEDS: Ferrous Sulfate 325 MG Tab PO SCH (08:54)
[2022-09-29] MEDS ORDERED: Non-Formulary Medication 1 Each (Cranberry [Cranberry] 500 MG Cap) PO SCH (09:00)
[2022-09-29] MEDS: Formoterol/Mometasone 200-5 MCG 8.8 GM Inhaler IH SCH ×2 (09:20→20:25)
[2022-09-29] MEDS: Tiotropium Bromide 4 GM Inhalation Spray (2.5mcg/1 dose; 10 doses) INH SCH (09:24)
[2022-09-29] MEDS: Psyllium Husk Powder Sugar Free 5.85 GM Packet PO SCH (09:25)
[2022-09-29] MEDS: Sodium Chloride 0.9% 10 ML Syringe FLUSH SCH ×2 (09:43→20:31)
[2022-09-29 12:43] LABS: ANION GAP 16.8 mEq/L (7-13)
[2022-09-29] MEDS: Polyethylene Glycol 3350 Powder 17 GM Packet PO SCH (16:42)
[2022-09-29] MEDS: guaiFENesin/Dextromethorphan 100-10 MG/5 ML Soln 5 ML Cup PO PRN (16:55)
[2022-09-29] MEDS: Metoprolol Tartrate 5 MG/5 ML SDV IVPUSH PRN (17:31)
[2022-09-29] MEDS: ALPRAZolam 0.5 MG Tab PO PRN (18:51)
[2022-09-29] MEDS: Albuterol/Ipratropium 3.0-0.5 MG/3 ML Neb Soln NEB PRN (19:00)
[2022-09-29] MEDS: Pramipexole 0.125 MG Tab PO SCH (20:21)
[2022-09-29] MEDS: Latanoprost 0.005% Ophth Soln 2.5 ML Bottle EYEBOTH SCH (20:27)
[2022-09-29] MEDS: Polyvinyl Alcohol 1.4% Ophth Soln 15 ML Bottle EYEBOTH SCH (20:33)
[2022-09-29] MEDS ORDERED: Latanoprost 0.005% Ophth Soln 2.5 ML Bottle EYEBOTH SCH (21:00)
[2022-09-30] MEDS: methylPREDNISolone Sodium Succinate 40 MG/1 ML SDV IVPUSH SCH ×4 (02:34→20:36)
[2022-09-30] MEDS: Albuterol/Ipratropium 3.0-0.5 MG/3 ML Neb Soln NEB PRN (06:26)
[2022-09-30] MEDS: Levothyroxine 25 MCG Tab PO SCH (06:26)
[2022-09-30] MEDS: Metoprolol Tartrate 5 MG/5 ML SDV IVPUSH PRN ×2 (06:38→17:52)
[2022-09-30 07:30] LABS: ANION GAP 12.6 mEq/L (7-13)
[2022-09-30] MEDS: ALPRAZolam 0.5 MG Tab PO PRN ×2 (07:47→16:41)
[2022-09-30] MEDS: guaiFENesin/Dextromethorphan 100-10 MG/5 ML Soln 5 ML Cup PO PRN ×2 (07:48→15:23)
[2022-09-30] MEDS: Insulin Lispro 100 Units/ML 3 ML Vial SUBCUT SCH ×3 (08:14→16:40)
[2022-09-30] MEDS: Saccharomyces Boulardii (Probiotic) 250 MG Cap PO SCH ×2 (08:21→20:38)
[2022-09-30] MEDS: Diltiazem 120 MG Cap.CD PO SCH (08:22)
[2022-09-30] MEDS: Pantoprazole 40 MG Tab.CR PO SCH (08:22)
[2022-09-30] MEDS: Venlafaxine 37.5 MG Cap.ER PO SCH (08:22)
[2022-09-30] MEDS: Ferrous Sulfate 325 MG Tab PO SCH (08:23)
[2022-09-30] MEDS: Multivitamin Tab PO SCH (08:23)
[2022-09-30] MEDS: Calcium Carbonate/Vitamin D3 1250 MG-5 MCG Tab PO SCH ×2 (08:23→20:38)
[2022-09-30] MEDS: Tiotropium Bromide 4 GM Inhalation Spray (2.5mcg/1 dose; 10 doses) INH SCH (08:29)
[2022-09-30] MEDS: Psyllium Husk Powder Sugar Free 5.85 GM Packet PO SCH (08:30)
[2022-09-30] MEDS: cefTRIAXone 2 GM Vial IVPUSH SCH (08:39)
[2022-09-30] MEDS: Formoterol/Mometasone 200-5 MCG 8.8 GM Inhaler IH SCH ×2 (08:41→20:40)
[2022-09-30] MEDS: Sodium Chloride 0.9% 10 ML Syringe FLUSH SCH ×2 (09:34→20:41)
[2022-09-30] MEDS: Polyvinyl Alcohol 1.4% Ophth Soln 15 ML Bottle EYEBOTH SCH ×2 (09:34→20:39)
[2022-09-30] MEDS: Azithromycin 500 MG in Sodium Chloride 0.9% 250 ML IV SCH (09:35)
[2022-09-30] MEDS ORDERED: guaiFENesin 600 MG Tab.ER PO ONE (12:56)
[2022-09-30] MEDS: Albuterol/Ipratropium 3.0-0.5 MG/3 ML Neb Soln NEB SCH ×2 (16:20→17:48)
[2022-09-30] MEDS: hydrALAZINE 20 MG/ML SDV IVPUSH PRN (16:35)
[2022-09-30] MEDS ORDERED: Furosemide 20 MG/2 ML VIAL IVPUSH ONE (20:12)
[2022-09-30] MEDS: guaiFENesin 600 MG Tab.ER PO SCH (20:37)
[2022-09-30] MEDS: Pramipexole 0.125 MG Tab PO SCH (20:39)
[2022-09-30] MEDS: Latanoprost 0.005% Ophth Soln 2.5 ML Bottle EYEBOTH SCH (20:41)
[2022-09-30] MEDS: Metoprolol Tartrate 25 MG Tab PO SCH (20:52)
[2022-10-01] MEDS: methylPREDNISolone Sodium Succinate 40 MG/1 ML SDV IVPUSH SCH ×4 (03:00→20:40)
[2022-10-01] MEDS: Levothyroxine 25 MCG Tab PO SCH (05:20)
[2022-10-01] MEDS: hydrALAZINE 20 MG/ML SDV IVPUSH PRN ×2 (05:23→17:31)
[2022-10-01 07:23] LABS: ANION GAP 15.4 mEq/L (7-13)
[2022-10-01] MEDS: Albuterol/Ipratropium 3.0-0.5 MG/3 ML Neb Soln NEB SCH ×2 (08:38→18:06)
[2022-10-01] MEDS: cefTRIAXone 2 GM Vial IVPUSH SCH (09:04)
[2022-10-01] MEDS: Azithromycin 500 MG in Sodium Chloride 0.9% 250 ML IV SCH (09:30)
[2022-10-01] MEDS: Insulin Lispro 100 Units/ML 3 ML Vial SUBCUT SCH ×3 (09:49→17:54)
[2022-10-01] MEDS: Saccharomyces Boulardii (Probiotic) 250 MG Cap PO SCH ×2 (09:51→20:39)
[2022-10-01] MEDS: Pantoprazole 40 MG Tab.CR PO SCH (09:52)
[2022-10-01] MEDS: Ferrous Sulfate 325 MG Tab PO SCH (09:52)
[2022-10-01] MEDS: Multivitamin Tab PO SCH (09:52)
[2022-10-01] MEDS: Venlafaxine 37.5 MG Cap.ER PO SCH (09:52)
[2022-10-01] MEDS: Diltiazem 120 MG Cap.CD PO SCH (09:53)
[2022-10-01] MEDS: Calcium Carbonate/Vitamin D3 1250 MG-5 MCG Tab PO SCH ×2 (09:53→20:40)
[2022-10-01] MEDS: Metoprolol Tartrate 25 MG Tab PO SCH ×2 (09:53→20:39)
[2022-10-01] MEDS: guaiFENesin 600 MG Tab.ER PO SCH ×2 (09:53→20:39)
[2022-10-01] MEDS: Sodium Chloride 0.9% 10 ML Syringe FLUSH SCH ×2 (09:54→20:40)
[2022-10-01] MEDS: Psyllium Husk Powder Sugar Free 5.85 GM Packet PO SCH (09:55)
[2022-10-01] MEDS: Hydrochlorothiazide 25 MG Tab PO SCH (09:55)
[2022-10-01] MEDS: Polyvinyl Alcohol 1.4% Ophth Soln 15 ML Bottle EYEBOTH SCH ×2 (09:56→20:41)
[2022-10-01] MEDS: Formoterol/Mometasone 200-5 MCG 8.8 GM Inhaler IH SCH ×2 (09:57→20:41)
[2022-10-01] MEDS: Tiotropium Bromide 4 GM Inhalation Spray (2.5mcg/1 dose; 10 doses) INH SCH (09:58)
[2022-10-01] MEDS ORDERED: Potassium Chloride 10 MEQ Tab.ER PO ONE (11:00)
[2022-10-01] MEDS: Albuterol/Ipratropium 3.0-0.5 MG/3 ML Neb Soln NEB PRN (12:57)
[2022-10-01] MEDS ORDERED: Furosemide 20 MG/2 ML VIAL IVPUSH ONE (20:00)
[2022-10-01] MEDS: Pramipexole 0.125 MG Tab PO SCH (20:39)
[2022-10-01] MEDS: Latanoprost 0.005% Ophth Soln 2.5 ML Bottle EYEBOTH SCH (20:42)
[2022-10-02] MEDS: Albuterol/Ipratropium 3.0-0.5 MG/3 ML Neb Soln NEB PRN (03:50)
[2022-10-02] MEDS: guaiFENesin/Dextromethorphan 100-10 MG/5 ML Soln 5 ML Cup PO PRN (04:00)
[2022-10-02] MEDS: Levothyroxine 25 MCG Tab PO SCH (05:40)
[2022-10-02] MEDS: methylPREDNISolone Sodium Succinate 40 MG/1 ML SDV IVPUSH SCH ×3 (05:40→20:25)
[2022-10-02 07:34] LABS: ANION GAP 13.5 mEq/L (7-13); CHLORIDE,CL 96 mmol/L (98-107); SODIUM,NA 139 mmol/L (136-145)
[2022-10-02 07:40] LABS: ESTIMATED GFR 53 mL/min (>=60)
[2022-10-02] MEDS ORDERED: Potassium Chloride 10 MEQ Tab.ER PO ONE (08:28)
[2022-10-02] MEDS: Albuterol/Ipratropium 3.0-0.5 MG/3 ML Neb Soln NEB SCH ×2 (09:16→17:46)
[2022-10-02] MEDS: Insulin Lispro 100 Units/ML 3 ML Vial SUBCUT SCH ×3 (09:19→17:04)
[2022-10-02] MEDS: Psyllium Husk Powder Sugar Free 5.85 GM Packet PO SCH (09:22)
[2022-10-02] MEDS: Polyethylene Glycol 3350 Powder 17 GM Packet PO SCH (09:22)
[2022-10-02] MEDS: cefTRIAXone 2 GM Vial IVPUSH SCH (09:23)
[2022-10-02] MEDS: Ferrous Sulfate 325 MG Tab PO SCH (09:30)
[2022-10-02] MEDS: guaiFENesin 600 MG Tab.ER PO SCH ×2 (09:30→20:24)
[2022-10-02] MEDS: Venlafaxine 37.5 MG Cap.ER PO SCH (09:30)
[2022-10-02] MEDS: Metoprolol Tartrate 25 MG Tab PO SCH ×2 (09:30→20:25)
[2022-10-02] MEDS: Diltiazem 120 MG Cap.CD PO SCH (09:31)
[2022-10-02] MEDS: Calcium Carbonate/Vitamin D3 1250 MG-5 MCG Tab PO SCH ×2 (09:31→20:25)
[2022-10-02] MEDS: Saccharomyces Boulardii (Probiotic) 250 MG Cap PO SCH ×2 (09:31→20:23)
[2022-10-02] MEDS: Hydrochlorothiazide 25 MG Tab PO SCH (09:31)
[2022-10-02] MEDS: Multivitamin Tab PO SCH (09:31)
[2022-10-02] MEDS: Pantoprazole 40 MG Tab.CR PO SCH (09:31)
[2022-10-02] MEDS: Azithromycin 500 MG in Sodium Chloride 0.9% 250 ML IV SCH (09:36)
[2022-10-02] MEDS: Formoterol/Mometasone 200-5 MCG 8.8 GM Inhaler IH SCH ×2 (09:47→20:27)
[2022-10-02] MEDS: Polyvinyl Alcohol 1.4% Ophth Soln 15 ML Bottle EYEBOTH SCH ×2 (09:47→20:31)
[2022-10-02] MEDS: Tiotropium Bromide 4 GM Inhalation Spray (2.5mcg/1 dose; 10 doses) INH SCH (09:47)
[2022-10-02] MEDS: Sodium Chloride 0.9% 10 ML Syringe FLUSH SCH ×2 (09:49→20:27)
[2022-10-02] MEDS: Potassium Chloride 10 MEQ Tab.ER PO ONE ×4 (12:47→13:39)
[2022-10-02] MEDS: Pramipexole 0.125 MG Tab PO SCH (20:24)
[2022-10-02] MEDS: Latanoprost 0.005% Ophth Soln 2.5 ML Bottle EYEBOTH SCH (20:28)
[2022-10-03] MEDS: hydrALAZINE 20 MG/ML SDV IVPUSH PRN (04:09)
[2022-10-03] MEDS: Levothyroxine 25 MCG Tab PO SCH (05:28)
[2022-10-03] MEDS: Pantoprazole 40 MG Tab.CR PO SCH (08:13)
[2022-10-03] MEDS: Diltiazem 120 MG Cap.CD PO SCH (08:13)
[2022-10-03] MEDS: Metoprolol Tartrate 25 MG Tab PO SCH (08:13)
[2022-10-03] MEDS: Calcium Carbonate/Vitamin D3 1250 MG-5 MCG Tab PO SCH (08:13)
[2022-10-03] MEDS: Saccharomyces Boulardii (Probiotic) 250 MG Cap PO SCH (08:14)
[2022-10-03] MEDS: Multivitamin Tab PO SCH (08:14)
[2022-10-03] MEDS: guaiFENesin 600 MG Tab.ER PO SCH (08:14)
[2022-10-03] MEDS: Ferrous Sulfate 325 MG Tab PO SCH (08:14)
[2022-10-03] MEDS: Hydrochlorothiazide 25 MG Tab PO SCH (08:14)
[2022-10-03] MEDS: Venlafaxine 37.5 MG Cap.ER PO SCH (08:14)
[2022-10-03] MEDS ORDERED: Potassium Chloride 10 MEQ Tab.ER PO SCH ×2 (08:15→17:00)
[2022-10-03] MEDS: Psyllium Husk Powder Sugar Free 5.85 GM Packet PO SCH (08:22)
[2022-10-03] MEDS: methylPREDNISolone Sodium Succinate 40 MG/1 ML SDV IVPUSH SCH (08:24)
[2022-10-03] MEDS: cefTRIAXone 2 GM Vial IVPUSH SCH (08:26)
[2022-10-03] MEDS: Azithromycin 500 MG in Sodium Chloride 0.9% 250 ML IV SCH (08:29)
[2022-10-03] MEDS: Polyvinyl Alcohol 1.4% Ophth Soln 15 ML Bottle EYEBOTH SCH (08:33)
[2022-10-03] MEDS: Insulin Lispro 100 Units/ML 3 ML Vial SUBCUT SCH ×2 (08:35→12:12)
[2022-10-03] MEDS: Formoterol/Mometasone 200-5 MCG 8.8 GM Inhaler IH SCH (08:40)
[2022-10-03] MEDS: Tiotropium Bromide 4 GM Inhalation Spray (2.5mcg/1 dose; 10 doses) INH SCH (08:40)
[2022-10-03] MEDS: Sodium Chloride 0.9% 10 ML Syringe FLUSH SCH (08:41)
[2022-10-03] MEDS: Albuterol/Ipratropium 3.0-0.5 MG/3 ML Neb Soln NEB SCH (08:54)
[2022-10-03 12:09] VITALS: BP 138/53; PULSE 70
== END 2022-10-03 12:20 | disposition swing bed (61) | DRG 871 ==
LOC: DL.ED 21:29 → DL.MS 09-29 00:48
PROVIDERS: ADMIT Internal Medicine; ATTEND Internal Medicine
DX: A41.9 Sepsis, unspecified organism (principal); J18.9 Pneumonia, unspecified organism; J96.01 Acute respiratory failure with hypoxia; J45.901 Unspecified asthma with (acute) exacerbation; J45.51 Severe persistent asthma with (acute) exacerbation; J44.0 Chronic obstructive pulmonary disease with (acute) lower respiratory infection; J44.1 Chronic obstructive pulmonary disease with (acute) exacerbation; E87.1 Hypo-osmolality and hyponatremia; N17.9 Acute kidney failure, unspecified; E87.20 Acidosis, unspecified; I50.30 Unspecified diastolic (congestive) heart failure; I13.0 Hypertensive heart and chronic kidney disease with heart failure and stage 1 through stage 4 chronic kidney disease, or unspecified chronic kidney disease; Z66 Do not resuscitate; H91.90 Unspecified hearing loss, unspecified ear; H54.7 Unspecified visual loss; E87.70 Fluid overload, unspecified; E78.5 Hyperlipidemia, unspecified; K44.9 Diaphragmatic hernia without obstruction or gangrene; I50.9 Heart failure, unspecified; E53.8 Deficiency of other specified B group vitamins; D50.9 Iron deficiency anemia, unspecified; F41.9 Anxiety disorder, unspecified; M19.90 Unspecified osteoarthritis, unspecified site; Z96.653 Presence of artificial knee joint, bilateral; N18.9 Chronic kidney disease, unspecified; E87.6 Hypokalemia; E03.9 Hypothyroidism, unspecified; K21.9 Gastro-esophageal reflux disease without esophagitis; Z79.899 Other long term (current) drug therapy; E87.8 Other disorders of electrolyte and fluid balance, not elsewhere classified; R73.9 Hyperglycemia, unspecified; H40.9 Unspecified glaucoma; Z20.822 Contact with and (suspected) exposure to COVID-19; Z79.51 Long term (current) use of inhaled steroids; Z98.49 Cataract extraction status, unspecified eye; Z98.890 Other specified postprocedural states; Z90.89 Acquired absence of other organs; Z90.49 Acquired absence of other specified parts of digestive tract; Z85.3 Personal history of malignant neoplasm of breast; Z85.828 Personal history of other malignant neoplasm of skin; Z86.16 Personal history of COVID-19; Z90.721 Acquired absence of ovaries, unilateral; Z98.51 Tubal ligation status; Z87.891 Personal history of nicotine dependence; Z99.81 Dependence on supplemental oxygen; E78.00 Pure hypercholesterolemia, unspecified; Z88.8 Allergy status to other drugs, medicaments and biological substances; Z88.5 Allergy status to narcotic agent
CPT/HCPCS: 0241U; 36415; 71045; 80048; 80053; 81001; 82306; 82947; 83605; 83735; 83880; 84132; 84484; 85025; 85027; 85379; 85610; 86140; 87040; 93005; 93010; 93306; 94640; 96374; 96375; 97116-GP; 97161-GP; 97165-GO; 97530-GO; 97530-GP; 99223; 99233; 99238; 99285; 99285-25; A9270-GY; J0360; J0456; J0696; J1815-GY; J1940; J2920; J2930; J3475; J3480; J3490; J7050; J7620-GY

== ENCOUNTER 2022-10-03 04:24 | Inpatient (IN) | payer MEDICARE, BC ==
[2022-10-03] MEDS ORDERED: Polyethylene Glycol 3350 Powder 17 GM Packet PO PRN (12:25)
[2022-10-03] MEDS ORDERED: Ondansetron 4 MG/2 ML SDV IVPUSH PRN (12:25)
[2022-10-03] MEDS ORDERED: Acetaminophen/HYDROcodone 325-5 MG Tab PO PRN (12:25)
[2022-10-03] MEDS ORDERED: Bisacodyl 5 MG Tab PO PRN (12:25)
[2022-10-03] MEDS ORDERED: 50% Dextrose in Water 50 ML Syringe IVPUSH PRN (12:25)
[2022-10-03] MEDS ORDERED: Magnesium Hydroxide 400 MG/5 ML Susp 30 ML Cup PO PRN (12:25)
[2022-10-03] MEDS ORDERED: Diclofenac Sodium 1% Gel 100 GM Tube TOP PRN (12:25)
[2022-10-03] MEDS ORDERED: Metoprolol Tartrate 5 MG/5 ML SDV IVPUSH PRN (12:25)
[2022-10-03] MEDS ORDERED: Sodium Chloride 0.9% 10 ML Syringe FLUSH PRN ×2 (12:25)
[2022-10-03] MEDS ORDERED: Glucagon,Human Recombinant 1 MG Vial IM PRN ×2 (12:25)
[2022-10-03] MEDS ORDERED: Acetaminophen 325 MG Tab PO PRN (12:25)
[2022-10-03] MEDS: guaiFENesin/Dextromethorphan 100-10 MG/5 ML Soln 5 ML Cup PO PRN (13:01)
[2022-10-03] MEDS: Insulin Lispro 100 Units/ML 3 ML Vial SUBCUT SCH (17:44)
[2022-10-03] MEDS: Potassium Chloride 10 MEQ Tab.ER PO SCH ×2 (17:45→17:47)
[2022-10-03] MEDS ORDERED: Albuterol/Ipratropium 3.0-0.5 MG/3 ML Neb Soln NEB SCH (18:00)
[2022-10-03] MEDS ORDERED: Pramipexole 0.125 MG Tab PO PRN (18:56)
[2022-10-03] MEDS: Formoterol/Mometasone 200-5 MCG 8.8 GM Inhaler IH SCH (20:31)
[2022-10-03] MEDS: Latanoprost 0.005% Ophth Soln 2.5 ML Bottle EYEBOTH SCH (20:31)
[2022-10-03] MEDS: Pramipexole 0.125 MG Tab PO SCH (20:32)
[2022-10-03] MEDS: Calcium Carbonate/Vitamin D3 1250 MG-5 MCG Tab PO SCH (20:33)
[2022-10-03] MEDS: Saccharomyces Boulardii (Probiotic) 250 MG Cap PO SCH (20:33)
[2022-10-03] MEDS: Amoxicillin/Clavulanate K 500-125 MG Tab PO SCH (20:33)
[2022-10-03] MEDS: guaiFENesin 600 MG Tab.ER PO SCH (20:33)
[2022-10-03] MEDS: Polyvinyl Alcohol 1.4% Ophth Soln 15 ML Bottle EYEBOTH SCH (20:34)
[2022-10-03] MEDS: Sodium Chloride 0.9% 10 ML Syringe FLUSH SCH (20:34)
[2022-10-03] MEDS: Metoprolol Tartrate 25 MG Tab PO SCH (20:35)
[2022-10-03] MEDS ORDERED: methylPREDNISolone Sodium Succinate 40 MG/1 ML SDV IVPUSH SCH (21:00)
[2022-10-03] MEDS ORDERED: Sodium Chloride 0.9% 10 ML Syringe FLUSH SCH (21:00)
[2022-10-03] MEDS ORDERED: Saccharomyces Boulardii (Probiotic) 250 MG Cap PO SCH (21:00)
[2022-10-04] MEDS: Albuterol/Ipratropium 3.0-0.5 MG/3 ML Neb Soln NEB PRN (05:36)
[2022-10-04] MEDS: Levothyroxine 25 MCG Tab PO SCH (05:36)
[2022-10-04] MEDS: predniSONE 20 MG Tab PO SCH (08:06)
[2022-10-04] MEDS: Potassium Chloride 10 MEQ Tab.ER PO SCH (08:06)
[2022-10-04] MEDS: Insulin Lispro 100 Units/ML 3 ML Vial SUBCUT SCH ×2 (08:07→12:08)
[2022-10-04] MEDS: Diltiazem 120 MG Cap.CD PO SCH (08:32)
[2022-10-04] MEDS: Polyethylene Glycol 3350 Powder 17 GM Packet PO SCH (08:32)
[2022-10-04] MEDS: Calcium Carbonate/Vitamin D3 1250 MG-5 MCG Tab PO SCH ×2 (08:32→20:32)
[2022-10-04] MEDS: Psyllium Husk Powder Sugar Free 5.85 GM Packet PO SCH (08:32)
[2022-10-04] MEDS: Ferrous Sulfate 325 MG Tab PO SCH (08:32)
[2022-10-04] MEDS: Amoxicillin/Clavulanate K 500-125 MG Tab PO SCH ×2 (08:32→20:31)
[2022-10-04] MEDS: Saccharomyces Boulardii (Probiotic) 250 MG Cap PO SCH ×2 (08:33→20:31)
[2022-10-04] MEDS: Multivitamin Tab PO SCH (08:33)
[2022-10-04] MEDS: Venlafaxine 37.5 MG Cap.ER PO SCH (08:33)
[2022-10-04] MEDS: Furosemide 20 MG Tab PO SCH (08:33)
[2022-10-04] MEDS: Metoprolol Tartrate 25 MG Tab PO SCH ×2 (08:33→20:31)
[2022-10-04] MEDS: Azithromycin 250 MG Tab PO SCH (08:33)
[2022-10-04] MEDS: Pantoprazole 40 MG Tab.CR PO SCH (08:33)
[2022-10-04] MEDS: guaiFENesin 600 MG Tab.ER PO SCH ×2 (08:33→20:32)
[2022-10-04] MEDS: Polyvinyl Alcohol 1.4% Ophth Soln 15 ML Bottle EYEBOTH SCH ×2 (08:34→20:39)
[2022-10-04] MEDS: Formoterol/Mometasone 200-5 MCG 8.8 GM Inhaler IH SCH ×2 (08:34→20:38)
[2022-10-04] MEDS: Tiotropium Bromide 4 GM Inhalation Spray (2.5mcg/1 dose; 10 doses) INH SCH (08:35)
[2022-10-04] MEDS: Sodium Chloride 0.9% 10 ML Syringe FLUSH SCH ×2 (08:35→20:39)
[2022-10-04] MEDS ORDERED: Saccharomyces Boulardii (Probiotic) 250 MG Cap PO SCH (09:00)
[2022-10-04] MEDS ORDERED: Hydrochlorothiazide 25 MG Tab PO SCH (09:00)
[2022-10-04] MEDS: Pramipexole 0.125 MG Tab PO SCH (20:32)
[2022-10-04] MEDS: Latanoprost 0.005% Ophth Soln 2.5 ML Bottle EYEBOTH SCH (20:39)
[2022-10-05] MEDS: Levothyroxine 25 MCG Tab PO SCH (05:05)
[2022-10-05] MEDS: Multivitamin Tab PO SCH (09:16)
[2022-10-05] MEDS: Pantoprazole 40 MG Tab.CR PO SCH (09:16)
[2022-10-05] MEDS: Venlafaxine 37.5 MG Cap.ER PO SCH (09:16)
[2022-10-05] MEDS: Calcium Carbonate/Vitamin D3 1250 MG-5 MCG Tab PO SCH ×2 (09:17→20:32)
[2022-10-05] MEDS: Ferrous Sulfate 325 MG Tab PO SCH (09:17)
[2022-10-05] MEDS: Potassium Chloride 10 MEQ Tab.ER PO SCH (09:19)
[2022-10-05] MEDS: predniSONE 20 MG Tab PO SCH (09:20)
[2022-10-05] MEDS: Saccharomyces Boulardii (Probiotic) 250 MG Cap PO SCH ×2 (09:20→20:32)
[2022-10-05] MEDS: Amoxicillin/Clavulanate K 500-125 MG Tab PO SCH ×2 (09:20→20:32)
[2022-10-05] MEDS: Furosemide 20 MG Tab PO SCH (09:20)
[2022-10-05] MEDS: Azithromycin 250 MG Tab PO SCH (09:20)
[2022-10-05] MEDS: Polyvinyl Alcohol 1.4% Ophth Soln 15 ML Bottle EYEBOTH SCH ×2 (09:21→20:39)
[2022-10-05] MEDS: Tiotropium Bromide 4 GM Inhalation Spray (2.5mcg/1 dose; 10 doses) INH SCH (09:21)
[2022-10-05] MEDS: Formoterol/Mometasone 200-5 MCG 8.8 GM Inhaler IH SCH ×2 (09:21→20:38)
[2022-10-05] MEDS: Diltiazem 120 MG Cap.CD PO SCH (09:22)
[2022-10-05] MEDS: Metoprolol Tartrate 25 MG Tab PO SCH ×2 (09:23→20:33)
[2022-10-05] MEDS: Psyllium Husk Powder Sugar Free 5.85 GM Packet PO SCH (09:23)
[2022-10-05] MEDS: guaiFENesin 600 MG Tab.ER PO SCH ×2 (09:23→20:32)
[2022-10-05] MEDS: Sodium Chloride 0.9% 10 ML Syringe FLUSH SCH (09:24)
[2022-10-05] MEDS: Albuterol/Ipratropium 3.0-0.5 MG/3 ML Neb Soln NEB PRN (11:49)
[2022-10-05] MEDS: guaiFENesin/Dextromethorphan 100-10 MG/5 ML Soln 5 ML Cup PO PRN ×2 (11:53→18:03)
[2022-10-05] MEDS: guaiFENesin/Dextromethorphan 100-10 MG/5 ML Soln 5 ML Cup PO SCH (18:37)
[2022-10-05] MEDS: Pramipexole 0.125 MG Tab PO SCH (20:31)
[2022-10-05] MEDS: Latanoprost 0.005% Ophth Soln 2.5 ML Bottle EYEBOTH SCH (20:38)
[2022-10-06] MEDS: guaiFENesin/Dextromethorphan 100-10 MG/5 ML Soln 5 ML Cup PO SCH ×4 (00:16→18:01)
[2022-10-06] MEDS: Levothyroxine 25 MCG Tab PO SCH (05:25)
[2022-10-06] MEDS: Formoterol/Mometasone 200-5 MCG 8.8 GM Inhaler IH SCH ×2 (08:38→20:34)
[2022-10-06] MEDS: Polyethylene Glycol 3350 Powder 17 GM Packet PO SCH (08:40)
[2022-10-06] MEDS: Multivitamin Tab PO SCH (08:42)
[2022-10-06] MEDS: Calcium Carbonate/Vitamin D3 1250 MG-5 MCG Tab PO SCH ×2 (08:42→20:31)
[2022-10-06] MEDS: Diltiazem 120 MG Cap.CD PO SCH (08:42)
[2022-10-06] MEDS: Ferrous Sulfate 325 MG Tab PO SCH (08:42)
[2022-10-06] MEDS: predniSONE 20 MG Tab PO SCH (08:42)
[2022-10-06] MEDS: Furosemide 20 MG Tab PO SCH (08:42)
[2022-10-06] MEDS: Pantoprazole 40 MG Tab.CR PO SCH (08:43)
[2022-10-06] MEDS: Amoxicillin/Clavulanate K 500-125 MG Tab PO SCH ×2 (08:43→20:31)
[2022-10-06] MEDS: Metoprolol Tartrate 25 MG Tab PO SCH ×2 (08:43→20:30)
[2022-10-06] MEDS: Azithromycin 250 MG Tab PO SCH (08:44)
[2022-10-06] MEDS: guaiFENesin 600 MG Tab.ER PO SCH ×2 (08:44→20:31)
[2022-10-06] MEDS: Saccharomyces Boulardii (Probiotic) 250 MG Cap PO SCH ×2 (08:44→20:31)
[2022-10-06] MEDS: Potassium Chloride 10 MEQ Tab.ER PO SCH (08:45)
[2022-10-06] MEDS: Psyllium Husk Powder Sugar Free 5.85 GM Packet PO SCH (08:45)
[2022-10-06] MEDS: Venlafaxine 37.5 MG Cap.ER PO SCH (08:45)
[2022-10-06] MEDS: Tiotropium Bromide 4 GM Inhalation Spray (2.5mcg/1 dose; 10 doses) INH SCH (08:47)
[2022-10-06] MEDS: Polyvinyl Alcohol 1.4% Ophth Soln 15 ML Bottle EYEBOTH SCH ×2 (08:59→20:35)
[2022-10-06] MEDS: Albuterol/Ipratropium 3.0-0.5 MG/3 ML Neb Soln NEB PRN ×3 (14:11→22:24)
[2022-10-06] MEDS: Pramipexole 0.125 MG Tab PO SCH (20:31)
[2022-10-06] MEDS: Latanoprost 0.005% Ophth Soln 2.5 ML Bottle EYEBOTH SCH (20:35)
[2022-10-07] MEDS: Levothyroxine 25 MCG Tab PO SCH (05:17)
[2022-10-07] MEDS: guaiFENesin/Dextromethorphan 100-10 MG/5 ML Soln 5 ML Cup PO SCH ×6 (05:19→23:58)
[2022-10-07] MEDS: Albuterol/Ipratropium 3.0-0.5 MG/3 ML Neb Soln NEB PRN ×3 (05:20→14:48)
[2022-10-07] MEDS ORDERED: Budesonide 0.5 MG/2 ML Neb Susp NEB SCH (08:30)
[2022-10-07] MEDS: Polyethylene Glycol 3350 Powder 17 GM Packet PO SCH ×2 (08:50→09:01)
[2022-10-07] MEDS: Calcium Carbonate/Vitamin D3 1250 MG-5 MCG Tab PO SCH ×2 (08:50→21:12)
[2022-10-07] MEDS: Ferrous Sulfate 325 MG Tab PO SCH (08:50)
[2022-10-07] MEDS: Multivitamin Tab PO SCH (08:51)
[2022-10-07] MEDS: Venlafaxine 37.5 MG Cap.ER PO SCH (08:51)
[2022-10-07] MEDS: Furosemide 20 MG Tab PO SCH (08:51)
[2022-10-07] MEDS: Diltiazem 120 MG Cap.CD PO SCH (08:52)
[2022-10-07] MEDS: Azithromycin 250 MG Tab PO SCH (08:52)
[2022-10-07] MEDS: Saccharomyces Boulardii (Probiotic) 250 MG Cap PO SCH ×2 (08:52→21:11)
[2022-10-07] MEDS: guaiFENesin 600 MG Tab.ER PO SCH ×2 (08:52→21:14)
[2022-10-07] MEDS: Potassium Chloride 10 MEQ Tab.ER PO SCH (08:53)
[2022-10-07] MEDS: Pantoprazole 40 MG Tab.CR PO SCH (08:53)
[2022-10-07] MEDS: Polyvinyl Alcohol 1.4% Ophth Soln 15 ML Bottle EYEBOTH SCH ×2 (08:55→21:14)
[2022-10-07] MEDS: Formoterol/Mometasone 200-5 MCG 8.8 GM Inhaler IH SCH (08:56)
[2022-10-07] MEDS ORDERED: Budesonide 0.5 MG/2 ML Neb Susp ONE (09:51)
[2022-10-07] MEDS: ALPRAZolam 0.25 MG Tab PO PRN ×2 (09:53→17:34)
[2022-10-07] MEDS ORDERED: methylPREDNISolone Sodium Succinate 125 MG/2 ML SDV IM ONE (09:58)
[2022-10-07] MEDS: Psyllium Husk Powder Sugar Free 5.85 GM Packet PO SCH (10:04)
[2022-10-07] MEDS ORDERED: methylPREDNISolone Sodium Succinate 125 MG/2 ML SDV IVPUSH ONE (10:30)
[2022-10-07] MEDS: Budesonide 0.5 MG/2 ML Neb Susp NEB SCH ×2 (11:02→17:34)
[2022-10-07] MEDS: predniSONE 20 MG Tab PO SCH (11:14)
[2022-10-07] MEDS: Metoprolol Tartrate 25 MG Tab PO SCH ×2 (11:15→21:13)
[2022-10-07] MEDS: Lisinopril 5 MG Tab PO SCH (11:16)
[2022-10-07] MEDS: Tiotropium Bromide 4 GM Inhalation Spray (2.5mcg/1 dose; 10 doses) INH SCH (11:16)
[2022-10-07] MEDS ORDERED: Sodium Chloride 0.9% 10 ML Syringe FLUSH PRN (13:07)
[2022-10-07] MEDS: Pramipexole 0.125 MG Tab PO SCH (21:10)
[2022-10-07] MEDS: Montelukast 10 MG Tab PO SCH (21:12)
[2022-10-07] MEDS: Latanoprost 0.005% Ophth Soln 2.5 ML Bottle EYEBOTH SCH (21:14)
[2022-10-08] MEDS: Levothyroxine 25 MCG Tab PO SCH (06:29)
[2022-10-08] MEDS: Budesonide 0.5 MG/2 ML Neb Susp NEB SCH ×2 (06:30→17:55)
[2022-10-08] MEDS: guaiFENesin/Dextromethorphan 100-10 MG/5 ML Soln 5 ML Cup PO SCH ×3 (06:30→17:54)
[2022-10-08] MEDS: Enoxaparin 30 MG/0.3 ML Syringe SUBCUT SCH (09:28)
[2022-10-08] MEDS: Venlafaxine 37.5 MG Cap.ER PO SCH (09:31)
[2022-10-08] MEDS: Pantoprazole 40 MG Tab.CR PO SCH (09:32)
[2022-10-08] MEDS: predniSONE 20 MG Tab PO SCH (09:32)
[2022-10-08] MEDS: Potassium Chloride 10 MEQ Tab.ER PO SCH (09:32)
[2022-10-08] MEDS: Calcium Carbonate/Vitamin D3 1250 MG-5 MCG Tab PO SCH ×2 (09:33→21:41)
[2022-10-08] MEDS: Furosemide 20 MG Tab PO SCH (09:33)
[2022-10-08] MEDS: Ferrous Sulfate 325 MG Tab PO SCH (09:34)
[2022-10-08] MEDS: Multivitamin Tab PO SCH (09:34)
[2022-10-08] MEDS: guaiFENesin 600 MG Tab.ER PO SCH ×2 (09:35→21:41)
[2022-10-08] MEDS: Lisinopril 5 MG Tab PO SCH (09:35)
[2022-10-08] MEDS: Diltiazem 120 MG Cap.CD PO SCH (09:36)
[2022-10-08] MEDS: Metoprolol Tartrate 25 MG Tab PO SCH ×2 (09:39→21:42)
[2022-10-08] MEDS: Psyllium Husk Powder Sugar Free 5.85 GM Packet PO SCH (09:49)
[2022-10-08] MEDS: Polyvinyl Alcohol 1.4% Ophth Soln 15 ML Bottle EYEBOTH SCH ×2 (09:51→21:43)
[2022-10-08] MEDS: Tiotropium Bromide 4 GM Inhalation Spray (2.5mcg/1 dose; 10 doses) INH SCH (09:53)
[2022-10-08] MEDS: ALPRAZolam 0.25 MG Tab PO PRN (11:18)
[2022-10-08] MEDS: Albuterol/Ipratropium 3.0-0.5 MG/3 ML Neb Soln NEB PRN ×2 (12:46→21:36)
[2022-10-08] MEDS: Pramipexole 0.125 MG Tab PO SCH (21:41)
[2022-10-08] MEDS: Montelukast 10 MG Tab PO SCH (21:41)
[2022-10-08] MEDS: Latanoprost 0.005% Ophth Soln 2.5 ML Bottle EYEBOTH SCH (21:44)
[2022-10-09] MEDS: guaiFENesin/Dextromethorphan 100-10 MG/5 ML Soln 5 ML Cup PO SCH ×4 (01:54→18:09)
[2022-10-09] MEDS: Levothyroxine 25 MCG Tab PO SCH (05:37)
[2022-10-09 05:59] LABS: ANION GAP 10.9 mEq/L (7-13)
[2022-10-09] MEDS: Budesonide 0.5 MG/2 ML Neb Susp NEB SCH ×2 (06:39→18:07)
[2022-10-09] MEDS: Polyethylene Glycol 3350 Powder 17 GM Packet PO SCH (08:19)
[2022-10-09] MEDS: Potassium Chloride 10 MEQ Tab.ER PO SCH (08:19)
[2022-10-09] MEDS: guaiFENesin 600 MG Tab.ER PO SCH ×2 (08:19→20:24)
[2022-10-09] MEDS: Venlafaxine 37.5 MG Cap.ER PO SCH (08:19)
[2022-10-09] MEDS: Pantoprazole 40 MG Tab.CR PO SCH (08:20)
[2022-10-09] MEDS: Metoprolol Tartrate 25 MG Tab PO SCH ×2 (08:20→21:53)
[2022-10-09] MEDS: predniSONE 20 MG Tab PO SCH (08:21)
[2022-10-09] MEDS: Furosemide 20 MG Tab PO SCH (08:22)
[2022-10-09] MEDS: Diltiazem 120 MG Cap.CD PO SCH (08:22)
[2022-10-09] MEDS: Multivitamin Tab PO SCH (08:22)
[2022-10-09] MEDS: Ferrous Sulfate 325 MG Tab PO SCH (08:22)
[2022-10-09] MEDS: Calcium Carbonate/Vitamin D3 1250 MG-5 MCG Tab PO SCH ×2 (08:22→20:23)
[2022-10-09] MEDS: Lisinopril 5 MG Tab PO SCH (08:23)
[2022-10-09] MEDS: Enoxaparin 30 MG/0.3 ML Syringe SUBCUT SCH (08:24)
[2022-10-09] MEDS: Psyllium Husk Powder Sugar Free 5.85 GM Packet PO SCH (08:24)
[2022-10-09] MEDS: Tiotropium Bromide 4 GM Inhalation Spray (2.5mcg/1 dose; 10 doses) INH SCH (08:26)
[2022-10-09] MEDS: Polyvinyl Alcohol 1.4% Ophth Soln 15 ML Bottle EYEBOTH SCH ×2 (08:27→20:39)
[2022-10-09] MEDS: Albuterol/Ipratropium 3.0-0.5 MG/3 ML Neb Soln NEB PRN ×2 (11:46→18:17)
[2022-10-09] MEDS: Azithromycin 250 MG Tab PO SCH (12:06)
[2022-10-09] MEDS: cefTRIAXone 1 GM Vial IVPUSH SCH (12:06)
[2022-10-09] MEDS: Pramipexole 0.125 MG Tab PO SCH (20:23)
[2022-10-09] MEDS: Montelukast 10 MG Tab PO SCH (20:23)
[2022-10-09] MEDS: Latanoprost 0.005% Ophth Soln 2.5 ML Bottle EYEBOTH SCH (20:39)
[2022-10-09] MEDS: ALPRAZolam 0.25 MG Tab PO PRN (21:45)
[2022-10-10] MEDS: guaiFENesin/Dextromethorphan 100-10 MG/5 ML Soln 5 ML Cup PO SCH ×2 (00:30→05:31)
[2022-10-10] MEDS: Levothyroxine 25 MCG Tab PO SCH (05:32)
[2022-10-10] MEDS: Albuterol/Ipratropium 3.0-0.5 MG/3 ML Neb Soln NEB PRN ×2 (05:45→09:12)
[2022-10-10] MEDS: Budesonide 0.5 MG/2 ML Neb Susp NEB SCH (06:00)
[2022-10-10 07:51] VITALS: BP 165/49; PULSE 82
[2022-10-10] MEDS: Enoxaparin 30 MG/0.3 ML Syringe SUBCUT SCH (08:13)
[2022-10-10] MEDS: Calcium Carbonate/Vitamin D3 1250 MG-5 MCG Tab PO SCH (08:13)
[2022-10-10] MEDS: Psyllium Husk Powder Sugar Free 5.85 GM Packet PO SCH (08:13)
[2022-10-10] MEDS: Diltiazem 120 MG Cap.CD PO SCH (08:14)
[2022-10-10] MEDS: Potassium Chloride 10 MEQ Tab.ER PO SCH (08:14)
[2022-10-10] MEDS: Metoprolol Tartrate 25 MG Tab PO SCH (08:15)
[2022-10-10] MEDS: guaiFENesin 600 MG Tab.ER PO SCH (08:15)
[2022-10-10] MEDS: Lisinopril 5 MG Tab PO SCH (08:16)
[2022-10-10] MEDS: Ferrous Sulfate 325 MG Tab PO SCH (08:17)
[2022-10-10] MEDS: Furosemide 20 MG Tab PO SCH (08:17)
[2022-10-10] MEDS: predniSONE 20 MG Tab PO SCH (08:17)
[2022-10-10] MEDS: Multivitamin Tab PO SCH (08:18)
[2022-10-10] MEDS: Venlafaxine 37.5 MG Cap.ER PO SCH (08:18)
[2022-10-10] MEDS: Pantoprazole 40 MG Tab.CR PO SCH (08:18)
[2022-10-10] MEDS: Polyvinyl Alcohol 1.4% Ophth Soln 15 ML Bottle EYEBOTH SCH (08:19)
[2022-10-10] MEDS: Tiotropium Bromide 4 GM Inhalation Spray (2.5mcg/1 dose; 10 doses) INH SCH (08:19)
[2022-10-10] MEDS: Azithromycin 250 MG Tab PO SCH (08:19)
[2022-10-10] MEDS: cefTRIAXone 1 GM Vial IVPUSH SCH (09:35)
== END 2022-10-10 09:55 | disposition critical access hospital (66) | DRG 190 ==
LOC: DL.MS 12:20
PROVIDERS: ADMIT Internal Medicine; ATTEND Internal Medicine
DX: J44.0 Chronic obstructive pulmonary disease with (acute) lower respiratory infection (principal); J18.9 Pneumonia, unspecified organism; J69.0 Pneumonitis due to inhalation of food and vomit; E87.1 Hypo-osmolality and hyponatremia; I13.0 Hypertensive heart and chronic kidney disease with heart failure and stage 1 through stage 4 chronic kidney disease, or unspecified chronic kidney disease; I50.32 Chronic diastolic (congestive) heart failure; J44.1 Chronic obstructive pulmonary disease with (acute) exacerbation; R53.1 Weakness; H54.7 Unspecified visual loss; H91.90 Unspecified hearing loss, unspecified ear; E78.5 Hyperlipidemia, unspecified; E03.9 Hypothyroidism, unspecified; K21.9 Gastro-esophageal reflux disease without esophagitis; K44.9 Diaphragmatic hernia without obstruction or gangrene; N18.9 Chronic kidney disease, unspecified; D50.9 Iron deficiency anemia, unspecified; E53.8 Deficiency of other specified B group vitamins; E87.6 Hypokalemia; E88.09 Other disorders of plasma-protein metabolism, not elsewhere classified; M19.90 Unspecified osteoarthritis, unspecified site; Z85.3 Personal history of malignant neoplasm of breast; Z86.16 Personal history of COVID-19; Z79.899 Other long term (current) drug therapy
CPT/HCPCS: 36415; 71045; 80048; 82947; 85025; 93971; 94640; 97110-GO; 97110-GP; 97116-GP; 97161-GP; 97165-GO; 97530-GO; 97530-GP; 99306; 99309; 99310; 99316; A9270-GY; J0696; J1650; J2930; J3490; J7512; J7620-GY

== ENCOUNTER 2022-10-10 09:38 | Inpatient (IN) | payer MEDICARE, BC ==
[2022-10-10] MEDS ORDERED: Docusate Sodium 100 MG Cap PO PRN (10:10)
[2022-10-10] MEDS ORDERED: Acetaminophen/HYDROcodone 325-5 MG Tab PO PRN (10:10)
[2022-10-10] MEDS ORDERED: Acetaminophen 325 MG Tab PO PRN (10:10)
[2022-10-10] MEDS ORDERED: Ondansetron 4 MG/2 ML SDV IVPUSH PRN (10:10)
[2022-10-10] MEDS: cefTRIAXone 1 GM Vial IVPUSH SCH (11:14)
[2022-10-10] MEDS: Azithromycin 250 MG Tab PO SCH (12:16)
[2022-10-10] MEDS: Tiotropium Bromide 4 GM Inhalation Spray (2.5mcg/1 dose; 10 doses) INH SCH (12:30)
[2022-10-10] MEDS: methylPREDNISolone Sodium Succinate 40 MG/1 ML SDV IVPUSH SCH ×2 (13:31→21:53)
[2022-10-10] MEDS: guaiFENesin/Dextromethorphan 100-10 MG/5 ML Soln 5 ML Cup PO PRN (14:19)
[2022-10-10] MEDS ORDERED: Pramipexole 0.125 MG Tab PO PRN (14:38)
[2022-10-10] MEDS: Insulin Lispro 100 Units/ML 3 ML Vial SUBCUT SCH (18:11)
[2022-10-10] MEDS: Budesonide 0.5 MG/2 ML Neb Susp NEB SCH ×2 (18:14→18:22)
[2022-10-10] MEDS: Pramipexole 0.125 MG Tab PO SCH (20:38)
[2022-10-10] MEDS: Montelukast 10 MG Tab PO SCH (20:38)
[2022-10-10] MEDS: guaiFENesin 600 MG Tab.ER PO SCH (20:39)
[2022-10-10] MEDS: Latanoprost 0.005% Ophth Soln 2.5 ML Bottle EYEBOTH SCH (20:39)
[2022-10-10] MEDS: Albuterol/Ipratropium 3.0-0.5 MG/3 ML Neb Soln NEB PRN (21:52)
[2022-10-10] MEDS: ALPRAZolam 0.25 MG Tab PO PRN (21:53)
[2022-10-11] MEDS: Budesonide 0.5 MG/2 ML Neb Susp NEB SCH ×2 (06:30→17:41)
[2022-10-11] MEDS: methylPREDNISolone Sodium Succinate 40 MG/1 ML SDV IVPUSH SCH ×3 (06:30→21:33)
[2022-10-11] MEDS: Levothyroxine 25 MCG Tab PO SCH (06:34)
[2022-10-11 06:50] LABS: ANION GAP 10.9 mEq/L (7-13)
[2022-10-11] MEDS: guaiFENesin 600 MG Tab.ER PO SCH ×2 (08:18→21:32)
[2022-10-11] MEDS: Venlafaxine 37.5 MG Cap.ER PO SCH (08:18)
[2022-10-11] MEDS: Potassium Chloride 10 MEQ Tab.ER PO SCH (08:18)
[2022-10-11] MEDS: Insulin Lispro 100 Units/ML 3 ML Vial SUBCUT SCH ×3 (08:19→17:41)
[2022-10-11] MEDS: Ferrous Sulfate 325 MG Tab PO SCH (08:19)
[2022-10-11] MEDS: Azithromycin 250 MG Tab PO SCH (08:19)
[2022-10-11] MEDS: Furosemide 20 MG Tab PO SCH (08:19)
[2022-10-11] MEDS: Enoxaparin 30 MG/0.3 ML Syringe SUBCUT SCH (08:21)
[2022-10-11] MEDS: Tiotropium Bromide 4 GM Inhalation Spray (2.5mcg/1 dose; 10 doses) INH SCH (08:21)
[2022-10-11] MEDS: Lisinopril 5 MG Tab PO SCH (08:22)
[2022-10-11] MEDS: Diltiazem 120 MG Cap.CD PO SCH (09:12)
[2022-10-11] MEDS: cefTRIAXone 1 GM Vial IVPUSH SCH (09:59)
[2022-10-11] MEDS: Polyvinyl Alcohol 1.4% Ophth Soln 15 ML Bottle EYEBOTH PRN (10:59)
[2022-10-11] MEDS: Albuterol/Ipratropium 3.0-0.5 MG/3 ML Neb Soln NEB PRN (13:45)
[2022-10-11] MEDS: Latanoprost 0.005% Ophth Soln 2.5 ML Bottle EYEBOTH SCH (21:32)
[2022-10-11] MEDS: Montelukast 10 MG Tab PO SCH (21:33)
[2022-10-11] MEDS: Pramipexole 0.125 MG Tab PO SCH (21:33)
[2022-10-11] MEDS: guaiFENesin/Dextromethorphan 100-10 MG/5 ML Soln 5 ML Cup PO PRN (21:35)
[2022-10-12] MEDS: Budesonide 0.5 MG/2 ML Neb Susp NEB SCH ×2 (06:11→17:45)
[2022-10-12] MEDS: methylPREDNISolone Sodium Succinate 40 MG/1 ML SDV IVPUSH SCH ×3 (06:11→21:04)
[2022-10-12] MEDS: Levothyroxine 25 MCG Tab PO SCH (06:11)
[2022-10-12] MEDS: Venlafaxine 37.5 MG Cap.ER PO SCH (08:23)
[2022-10-12] MEDS: Potassium Chloride 10 MEQ Tab.ER PO SCH (08:27)
[2022-10-12] MEDS: Diltiazem 120 MG Cap.CD PO SCH (08:28)
[2022-10-12] MEDS: Lisinopril 5 MG Tab PO SCH (08:29)
[2022-10-12] MEDS: guaiFENesin 600 MG Tab.ER PO SCH ×2 (08:29→20:55)
[2022-10-12] MEDS: Furosemide 20 MG Tab PO SCH (08:29)
[2022-10-12] MEDS: Insulin Lispro 100 Units/ML 3 ML Vial SUBCUT SCH ×3 (08:30→17:41)
[2022-10-12] MEDS: cefTRIAXone 1 GM Vial IVPUSH SCH (08:30)
[2022-10-12] MEDS: Azithromycin 250 MG Tab PO SCH (08:30)
[2022-10-12] MEDS: Ferrous Sulfate 325 MG Tab PO SCH (08:30)
[2022-10-12] MEDS: Polyvinyl Alcohol 1.4% Ophth Soln 15 ML Bottle EYEBOTH PRN (08:33)
[2022-10-12] MEDS: Enoxaparin 30 MG/0.3 ML Syringe SUBCUT SCH (08:33)
[2022-10-12] MEDS: Tiotropium Bromide 4 GM Inhalation Spray (2.5mcg/1 dose; 10 doses) INH SCH (08:35)
[2022-10-12] MEDS: Nystatin Susp 100,000 Unit/ML 5 ML UD Cup PO SCH ×3 (13:26→21:04)
[2022-10-12] MEDS: Albuterol/Ipratropium 3.0-0.5 MG/3 ML Neb Soln NEB PRN (13:27)
[2022-10-12] MEDS: ALPRAZolam 0.25 MG Tab PO PRN (18:29)
[2022-10-12] MEDS: Pramipexole 0.125 MG Tab PO SCH (20:54)
[2022-10-12] MEDS: Montelukast 10 MG Tab PO SCH (20:55)
[2022-10-12] MEDS: Latanoprost 0.005% Ophth Soln 2.5 ML Bottle EYEBOTH SCH (20:58)
[2022-10-13] MEDS: guaiFENesin/Dextromethorphan 100-10 MG/5 ML Soln 5 ML Cup PO PRN (00:45)
[2022-10-13] MEDS: Albuterol/Ipratropium 3.0-0.5 MG/3 ML Neb Soln NEB PRN (00:45)
[2022-10-13] MEDS: Levothyroxine 25 MCG Tab PO SCH (06:27)
[2022-10-13] MEDS: Budesonide 0.5 MG/2 ML Neb Susp NEB SCH ×2 (06:27→18:23)
[2022-10-13] MEDS: methylPREDNISolone Sodium Succinate 40 MG/1 ML SDV IVPUSH SCH ×3 (06:27→21:02)
[2022-10-13 06:57] LABS: ANION GAP 7.9 mEq/L (7-13)
[2022-10-13] MEDS: Potassium Chloride 10 MEQ Tab.ER PO SCH (08:01)
[2022-10-13] MEDS: Furosemide 20 MG Tab PO SCH (08:02)
[2022-10-13] MEDS: Lisinopril 5 MG Tab PO SCH (08:03)
[2022-10-13] MEDS: Azithromycin 250 MG Tab PO SCH (08:04)
[2022-10-13] MEDS: Diltiazem 120 MG Cap.CD PO SCH (08:04)
[2022-10-13] MEDS: Ferrous Sulfate 325 MG Tab PO SCH (08:04)
[2022-10-13] MEDS: Venlafaxine 37.5 MG Cap.ER PO SCH (08:04)
[2022-10-13] MEDS: guaiFENesin 600 MG Tab.ER PO SCH ×2 (08:04→20:25)
[2022-10-13] MEDS: Nystatin Susp 100,000 Unit/ML 5 ML UD Cup PO SCH ×4 (08:06→20:24)
[2022-10-13] MEDS: Enoxaparin 30 MG/0.3 ML Syringe SUBCUT SCH (08:07)
[2022-10-13] MEDS: Insulin Lispro 100 Units/ML 3 ML Vial SUBCUT SCH ×3 (08:08→17:14)
[2022-10-13] MEDS: Tiotropium Bromide 4 GM Inhalation Spray (2.5mcg/1 dose; 10 doses) INH SCH (08:10)
[2022-10-13] MEDS: cefTRIAXone 1 GM Vial IVPUSH SCH (08:12)
[2022-10-13] MEDS: Pramipexole 0.125 MG Tab PO SCH (20:24)
[2022-10-13] MEDS: Montelukast 10 MG Tab PO SCH (20:25)
[2022-10-13] MEDS: Latanoprost 0.005% Ophth Soln 2.5 ML Bottle EYEBOTH SCH (20:25)
[2022-10-14] MEDS: Budesonide 0.5 MG/2 ML Neb Susp NEB SCH ×2 (06:07→17:25)
[2022-10-14] MEDS: methylPREDNISolone Sodium Succinate 40 MG/1 ML SDV IVPUSH SCH (06:07)
[2022-10-14] MEDS: Levothyroxine 25 MCG Tab PO SCH (06:07)
[2022-10-14] MEDS: guaiFENesin 600 MG Tab.ER PO SCH ×2 (08:47→20:41)
[2022-10-14] MEDS: Enoxaparin 30 MG/0.3 ML Syringe SUBCUT SCH (08:47)
[2022-10-14] MEDS: Tiotropium Bromide 4 GM Inhalation Spray (2.5mcg/1 dose; 10 doses) INH SCH (08:47)
[2022-10-14] MEDS: Nystatin Susp 100,000 Unit/ML 5 ML UD Cup PO SCH ×4 (08:48→20:41)
[2022-10-14] MEDS: Ferrous Sulfate 325 MG Tab PO SCH (08:48)
[2022-10-14] MEDS: Azithromycin 250 MG Tab PO SCH (08:48)
[2022-10-14] MEDS: Potassium Chloride 10 MEQ Tab.ER PO SCH (08:48)
[2022-10-14] MEDS: Furosemide 20 MG Tab PO SCH (08:48)
[2022-10-14] MEDS: Venlafaxine 37.5 MG Cap.ER PO SCH (08:48)
[2022-10-14] MEDS: Diltiazem 120 MG Cap.CD PO SCH (08:49)
[2022-10-14] MEDS: cefTRIAXone 1 GM Vial IVPUSH SCH (08:49)
[2022-10-14] MEDS: Insulin Lispro 100 Units/ML 3 ML Vial SUBCUT SCH ×3 (09:28→17:19)
[2022-10-14] MEDS: Lisinopril 5 MG Tab PO SCH (09:43)
[2022-10-14] MEDS: predniSONE 20 MG Tab PO SCH (09:43)
[2022-10-14] MEDS: Pramipexole 0.125 MG Tab PO SCH (20:40)
[2022-10-14] MEDS: Montelukast 10 MG Tab PO SCH (20:41)
[2022-10-14] MEDS: Latanoprost 0.005% Ophth Soln 2.5 ML Bottle EYEBOTH SCH (20:42)
[2022-10-15] MEDS: Levothyroxine 25 MCG Tab PO SCH (06:06)
[2022-10-15] MEDS: Budesonide 0.5 MG/2 ML Neb Susp NEB SCH ×2 (06:06→18:33)
[2022-10-15] MEDS: Nystatin Susp 100,000 Unit/ML 5 ML UD Cup PO SCH ×4 (08:43→20:55)
[2022-10-15] MEDS: Tiotropium Bromide 4 GM Inhalation Spray (2.5mcg/1 dose; 10 doses) INH SCH (08:44)
[2022-10-15] MEDS: Enoxaparin 30 MG/0.3 ML Syringe SUBCUT SCH (08:44)
[2022-10-15] MEDS: predniSONE 20 MG Tab PO SCH (08:44)
[2022-10-15] MEDS: Venlafaxine 37.5 MG Cap.ER PO SCH (08:45)
[2022-10-15] MEDS: Diltiazem 120 MG Cap.CD PO SCH (08:45)
[2022-10-15] MEDS: guaiFENesin 600 MG Tab.ER PO SCH ×2 (08:45→21:00)
[2022-10-15] MEDS: Ferrous Sulfate 325 MG Tab PO SCH (08:45)
[2022-10-15] MEDS: Potassium Chloride 10 MEQ Tab.ER PO SCH (08:45)
[2022-10-15] MEDS: Furosemide 20 MG Tab PO SCH (08:45)
[2022-10-15] MEDS: Azithromycin 250 MG Tab PO SCH (08:45)
[2022-10-15] MEDS: cefTRIAXone 1 GM Vial IVPUSH SCH (08:46)
[2022-10-15] MEDS: Lisinopril 5 MG Tab PO SCH (08:46)
[2022-10-15] MEDS: Insulin Lispro 100 Units/ML 3 ML Vial SUBCUT SCH ×3 (08:54→17:24)
[2022-10-15] MEDS: guaiFENesin/Dextromethorphan 100-10 MG/5 ML Soln 5 ML Cup PO PRN (14:16)
[2022-10-15] MEDS: Latanoprost 0.005% Ophth Soln 2.5 ML Bottle EYEBOTH SCH (20:55)
[2022-10-15] MEDS: Pramipexole 0.125 MG Tab PO SCH (20:56)
[2022-10-15] MEDS: Montelukast 10 MG Tab PO SCH (20:57)
[2022-10-16] MEDS: Budesonide 0.5 MG/2 ML Neb Susp NEB SCH (06:29)
[2022-10-16] MEDS: Levothyroxine 25 MCG Tab PO SCH (06:29)
[2022-10-16] MEDS: Nystatin Susp 100,000 Unit/ML 5 ML UD Cup PO SCH ×2 (09:59→14:12)
[2022-10-16] MEDS: Enoxaparin 30 MG/0.3 ML Syringe SUBCUT SCH (09:59)
[2022-10-16] MEDS ORDERED: Levofloxacin 500 MG Tab PO SCH (10:00)
[2022-10-16] MEDS: Potassium Chloride 10 MEQ Tab.ER PO SCH (10:00)
[2022-10-16] MEDS: predniSONE 20 MG Tab PO SCH (10:00)
[2022-10-16] MEDS: Ferrous Sulfate 325 MG Tab PO SCH (10:02)
[2022-10-16] MEDS: Furosemide 20 MG Tab PO SCH (10:02)
[2022-10-16] MEDS: Venlafaxine 37.5 MG Cap.ER PO SCH (10:02)
[2022-10-16] MEDS: Diltiazem 120 MG Cap.CD PO SCH (10:04)
[2022-10-16] MEDS: guaiFENesin 600 MG Tab.ER PO SCH (10:04)
[2022-10-16] MEDS: Lisinopril 5 MG Tab PO SCH (10:04)
[2022-10-16] MEDS: Tiotropium Bromide 4 GM Inhalation Spray (2.5mcg/1 dose; 10 doses) INH SCH (10:05)
[2022-10-16] MEDS: Insulin Lispro 100 Units/ML 3 ML Vial SUBCUT SCH ×2 (10:05→11:54)
[2022-10-16] MEDS: guaiFENesin/Dextromethorphan 100-10 MG/5 ML Soln 5 ML Cup PO PRN (13:48)
[2022-10-16 15:50] VITALS: BP 124/66; PULSE 83
[2022-10-17] MEDS ORDERED: predniSONE 20 MG Tab PO SCH (08:00)
== END 2022-10-16 12:40 | disposition home or self-care (01) | DRG 291 ==
LOC: DL.MS 10:22 → UNDODISIN 10-16 12:40
PROVIDERS: ADMIT Internal Medicine; ATTEND Internal Medicine
DX: I13.0 Hypertensive heart and chronic kidney disease with heart failure and stage 1 through stage 4 chronic kidney disease, or unspecified chronic kidney disease (principal); J96.20 Acute and chronic respiratory failure, unspecified whether with hypoxia or hypercapnia; I50.30 Unspecified diastolic (congestive) heart failure; K44.9 Diaphragmatic hernia without obstruction or gangrene; F41.9 Anxiety disorder, unspecified; B37.9 Candidiasis, unspecified; M79.604 Pain in right leg; Z66 Do not resuscitate; K21.9 Gastro-esophageal reflux disease without esophagitis; E78.5 Hyperlipidemia, unspecified; N18.9 Chronic kidney disease, unspecified; D50.9 Iron deficiency anemia, unspecified; H91.90 Unspecified hearing loss, unspecified ear; E03.9 Hypothyroidism, unspecified; H54.7 Unspecified visual loss; M19.90 Unspecified osteoarthritis, unspecified site; E78.00 Pure hypercholesterolemia, unspecified; Z96.653 Presence of artificial knee joint, bilateral; Z98.890 Other specified postprocedural states; Z85.3 Personal history of malignant neoplasm of breast; Z86.16 Personal history of COVID-19; Z85.828 Personal history of other malignant neoplasm of skin; Z88.5 Allergy status to narcotic agent; Z91.09 Other allergy status, other than to drugs and biological substances; Z79.51 Long term (current) use of inhaled steroids; Z79.899 Other long term (current) drug therapy; Z98.49 Cataract extraction status, unspecified eye; Z90.49 Acquired absence of other specified parts of digestive tract
CPT/HCPCS: 36415; 71250; 80048; 82947; 85025; 87070; 87106; 87205; 94640; 97110-GO; 97110-GP; 97116-GP; 97161-GP; 97165-GO; 97530-GO; 99222; 99232; 99239; A9270-GY; J0696; J1650; J1815-GY; J2920; J3490; J7512; J7620-GY

== ENCOUNTER 2022-10-16 09:57 | Inpatient (IN) | payer MEDICARE, BC ==
[2022-10-16] MEDS ORDERED: Acetaminophen/HYDROcodone 325-5 MG Tab PO PRN (13:31)
[2022-10-16] MEDS ORDERED: Ondansetron 4 MG/2 ML SDV IVPUSH PRN (13:31)
[2022-10-16] MEDS ORDERED: Docusate Sodium 100 MG Cap PO PRN (13:31)
[2022-10-16] MEDS ORDERED: Pramipexole 0.5 MG Tab PO PRN (13:31)
[2022-10-16] MEDS ORDERED: 50% Dextrose in Water 50 ML Syringe IVPUSH PRN (13:31)
[2022-10-16] MEDS ORDERED: Albuterol/Ipratropium 3.0-0.5 MG/3 ML Neb Soln NEB PRN (13:31)
[2022-10-16] MEDS ORDERED: Polyvinyl Alcohol 1.4% Ophth Soln 15 ML Bottle EYEBOTH PRN (13:31)
[2022-10-16] MEDS ORDERED: Glucagon,Human Recombinant 1 MG Vial IM PRN (13:31)
[2022-10-16] MEDS: Nystatin Susp 100,000 Unit/ML 5 ML UD Cup PO SCH ×2 (17:22→20:21)
[2022-10-16] MEDS: Insulin Lispro 100 Units/ML 3 ML Vial SUBCUT SCH (17:28)
[2022-10-16] MEDS: Budesonide 0.5 MG/2 ML Neb Susp NEB SCH (18:20)
[2022-10-16] MEDS: Pramipexole 0.5 MG Tab PO SCH (20:21)
[2022-10-16] MEDS: Montelukast 10 MG Tab PO SCH (20:21)
[2022-10-16] MEDS: guaiFENesin 600 MG Tab.ER PO SCH (20:21)
[2022-10-16] MEDS: guaiFENesin/Dextromethorphan 100-10 MG/5 ML Soln 5 ML Cup PO PRN (20:22)
[2022-10-16] MEDS: Latanoprost 0.005% Ophth Soln 2.5 ML Bottle EYEBOTH SCH (20:22)
[2022-10-17] MEDS: Levothyroxine 25 MCG Tab PO SCH (05:58)
[2022-10-17] MEDS: Budesonide 0.5 MG/2 ML Neb Susp NEB SCH ×2 (05:59→18:19)
[2022-10-17] MEDS: Acetaminophen 325 MG Tab PO PRN (07:33)
[2022-10-17] MEDS: Enoxaparin 40 MG/0.4 ML Syringe SUBCUT SCH (08:23)
[2022-10-17] MEDS: Potassium Chloride 10 MEQ Tab.ER PO SCH (08:24)
[2022-10-17] MEDS: Nystatin Susp 100,000 Unit/ML 5 ML UD Cup PO SCH ×4 (08:24→21:12)
[2022-10-17] MEDS: Venlafaxine 37.5 MG Cap.ER PO SCH (08:25)
[2022-10-17] MEDS: predniSONE 20 MG Tab PO SCH (08:26)
[2022-10-17] MEDS: Furosemide 20 MG Tab PO SCH (08:26)
[2022-10-17] MEDS: guaiFENesin 600 MG Tab.ER PO SCH ×2 (08:26→21:07)
[2022-10-17] MEDS: Diltiazem 120 MG Cap.CD PO SCH (08:27)
[2022-10-17] MEDS: Lisinopril 5 MG Tab PO SCH (08:27)
[2022-10-17] MEDS: Ferrous Sulfate 325 MG Tab PO SCH (08:27)
[2022-10-17] MEDS: Insulin Lispro 100 Units/ML 3 ML Vial SUBCUT SCH ×3 (08:28→17:52)
[2022-10-17] MEDS: Tiotropium Bromide 4 GM Inhalation Spray (2.5mcg/1 dose; 10 doses) INH SCH (08:29)
[2022-10-17] MEDS: Levofloxacin 250 MG Tab PO SCH (09:12)
[2022-10-17] MEDS ORDERED: Levofloxacin 500 MG Tab PO SCH (10:00)
[2022-10-17] MEDS: Fluconazole 100 MG Tab PO SCH (12:28)
[2022-10-17] MEDS: guaiFENesin/Dextromethorphan 100-10 MG/5 ML Soln 5 ML Cup PO PRN ×2 (15:39→21:07)
[2022-10-17] MEDS: Montelukast 10 MG Tab PO SCH (21:07)
[2022-10-17] MEDS: Pramipexole 0.5 MG Tab PO SCH (21:07)
[2022-10-17] MEDS: Latanoprost 0.005% Ophth Soln 2.5 ML Bottle EYEBOTH SCH (21:08)
[2022-10-18] MEDS: Levothyroxine 25 MCG Tab PO SCH (06:19)
[2022-10-18] MEDS: Budesonide 0.5 MG/2 ML Neb Susp NEB SCH ×2 (06:19→18:25)
[2022-10-18 07:03] LABS: ANION GAP 9.8 mEq/L (7-13)
[2022-10-18] MEDS: guaiFENesin 600 MG Tab.ER PO SCH ×2 (08:34→20:27)
[2022-10-18] MEDS: Potassium Chloride 10 MEQ Tab.ER PO SCH (08:35)
[2022-10-18] MEDS: Venlafaxine 37.5 MG Cap.ER PO SCH (08:37)
[2022-10-18] MEDS: Ferrous Sulfate 325 MG Tab PO SCH (08:38)
[2022-10-18] MEDS: predniSONE 20 MG Tab PO SCH (08:38)
[2022-10-18] MEDS: Fluconazole 100 MG Tab PO SCH (08:38)
[2022-10-18] MEDS: Furosemide 20 MG Tab PO SCH (08:39)
[2022-10-18] MEDS: Diltiazem 120 MG Cap.CD PO SCH (08:40)
[2022-10-18] MEDS: Lisinopril 5 MG Tab PO SCH (08:40)
[2022-10-18] MEDS: Nystatin Susp 100,000 Unit/ML 5 ML UD Cup PO SCH ×4 (08:41→20:27)
[2022-10-18] MEDS: Enoxaparin 40 MG/0.4 ML Syringe SUBCUT SCH (08:41)
[2022-10-18] MEDS: Tiotropium Bromide 4 GM Inhalation Spray (2.5mcg/1 dose; 10 doses) INH SCH (08:49)
[2022-10-18] MEDS: Insulin Lispro 100 Units/ML 3 ML Vial SUBCUT SCH ×3 (10:33→17:27)
[2022-10-18] MEDS: guaiFENesin/Dextromethorphan 100-10 MG/5 ML Soln 5 ML Cup PO PRN (16:59)
[2022-10-18] MEDS: Acetaminophen 325 MG Tab PO PRN (16:59)
[2022-10-18] MEDS: Montelukast 10 MG Tab PO SCH (20:27)
[2022-10-18] MEDS: Pramipexole 0.5 MG Tab PO SCH (20:27)
[2022-10-18] MEDS: Latanoprost 0.005% Ophth Soln 2.5 ML Bottle EYEBOTH SCH (20:32)
[2022-10-19] MEDS: Levothyroxine 25 MCG Tab PO SCH (06:01)
[2022-10-19] MEDS: Acetaminophen 325 MG Tab PO PRN (06:03)
[2022-10-19] MEDS: Budesonide 0.5 MG/2 ML Neb Susp NEB SCH ×2 (08:48→17:39)
[2022-10-19] MEDS: Nystatin Susp 100,000 Unit/ML 5 ML UD Cup PO SCH ×4 (08:50→20:33)
[2022-10-19] MEDS: Fluconazole 100 MG Tab PO SCH (08:50)
[2022-10-19] MEDS: Potassium Chloride 10 MEQ Tab.ER PO SCH (08:50)
[2022-10-19] MEDS: Diltiazem 120 MG Cap.CD PO SCH (08:50)
[2022-10-19] MEDS: predniSONE 20 MG Tab PO SCH (08:51)
[2022-10-19] MEDS: guaiFENesin 600 MG Tab.ER PO SCH ×2 (08:51→20:34)
[2022-10-19] MEDS: Ferrous Sulfate 325 MG Tab PO SCH (08:51)
[2022-10-19] MEDS: Venlafaxine 37.5 MG Cap.ER PO SCH (08:51)
[2022-10-19] MEDS: Lisinopril 5 MG Tab PO SCH (08:51)
[2022-10-19] MEDS: Furosemide 20 MG Tab PO SCH (08:51)
[2022-10-19] MEDS: Enoxaparin 40 MG/0.4 ML Syringe SUBCUT SCH (08:51)
[2022-10-19] MEDS: Insulin Lispro 100 Units/ML 3 ML Vial SUBCUT SCH ×3 (08:56→17:23)
[2022-10-19] MEDS: Tiotropium Bromide 4 GM Inhalation Spray (2.5mcg/1 dose; 10 doses) INH SCH (08:58)
[2022-10-19] MEDS: Levofloxacin 250 MG Tab PO SCH (09:01)
[2022-10-19] MEDS: guaiFENesin/Dextromethorphan 100-10 MG/5 ML Soln 5 ML Cup PO PRN ×2 (13:16→23:00)
[2022-10-19] MEDS: Benzocaine/Cetylpyridinium/Menthol Lozenge MUCMEM PRN ×3 (13:17→23:02)
[2022-10-19] MEDS: Latanoprost 0.005% Ophth Soln 2.5 ML Bottle EYEBOTH SCH (20:34)
[2022-10-19] MEDS: Pramipexole 0.5 MG Tab PO SCH (20:34)
[2022-10-19] MEDS: Montelukast 10 MG Tab PO SCH (20:34)
[2022-10-20] MEDS: Levothyroxine 25 MCG Tab PO SCH (06:18)
[2022-10-20] MEDS: Acetaminophen 325 MG Tab PO PRN ×2 (06:18→20:49)
[2022-10-20] MEDS: guaiFENesin/Dextromethorphan 100-10 MG/5 ML Soln 5 ML Cup PO PRN ×2 (06:28→23:20)
[2022-10-20] MEDS: Benzocaine/Cetylpyridinium/Menthol Lozenge MUCMEM PRN ×2 (06:28→20:49)
[2022-10-20] MEDS: Budesonide 0.5 MG/2 ML Neb Susp NEB SCH ×2 (07:42→19:13)
[2022-10-20] MEDS: guaiFENesin 600 MG Tab.ER PO SCH ×2 (08:49→20:49)
[2022-10-20] MEDS: Furosemide 20 MG Tab PO SCH (08:49)
[2022-10-20] MEDS: Fluconazole 100 MG Tab PO SCH (08:49)
[2022-10-20] MEDS: Lisinopril 5 MG Tab PO SCH (08:49)
[2022-10-20] MEDS: Ferrous Sulfate 325 MG Tab PO SCH (08:49)
[2022-10-20] MEDS: predniSONE 20 MG Tab PO SCH (08:49)
[2022-10-20] MEDS: Nystatin Susp 100,000 Unit/ML 5 ML UD Cup PO SCH ×4 (08:49→20:51)
[2022-10-20] MEDS: Diltiazem 120 MG Cap.CD PO SCH (08:50)
[2022-10-20] MEDS: Enoxaparin 40 MG/0.4 ML Syringe SUBCUT SCH (08:50)
[2022-10-20] MEDS: Potassium Chloride 10 MEQ Tab.ER PO SCH (08:50)
[2022-10-20] MEDS: Venlafaxine 37.5 MG Cap.ER PO SCH (08:50)
[2022-10-20] MEDS: Insulin Lispro 100 Units/ML 3 ML Vial SUBCUT SCH ×3 (08:51→17:37)
[2022-10-20] MEDS: Tiotropium Bromide 4 GM Inhalation Spray (2.5mcg/1 dose; 10 doses) INH SCH (08:55)
[2022-10-20] MEDS: Pramipexole 0.5 MG Tab PO SCH (20:49)
[2022-10-20] MEDS: Montelukast 10 MG Tab PO SCH (20:49)
[2022-10-20] MEDS: Latanoprost 0.005% Ophth Soln 2.5 ML Bottle EYEBOTH SCH (20:51)
[2022-10-21] MEDS: Benzocaine/Cetylpyridinium/Menthol Lozenge MUCMEM PRN (06:01)
[2022-10-21] MEDS: Levothyroxine 25 MCG Tab PO SCH (06:01)
[2022-10-21] MEDS: Acetaminophen 325 MG Tab PO PRN ×3 (06:01→20:04)
[2022-10-21] MEDS: guaiFENesin/Dextromethorphan 100-10 MG/5 ML Soln 5 ML Cup PO PRN ×2 (06:08→23:14)
[2022-10-21] MEDS: predniSONE 20 MG Tab PO SCH (08:33)
[2022-10-21] MEDS: Diltiazem 120 MG Cap.CD PO SCH (08:34)
[2022-10-21] MEDS: Furosemide 20 MG Tab PO SCH (08:34)
[2022-10-21] MEDS: guaiFENesin 600 MG Tab.ER PO SCH ×2 (08:34→20:04)
[2022-10-21] MEDS: Ferrous Sulfate 325 MG Tab PO SCH (08:34)
[2022-10-21] MEDS: Fluconazole 100 MG Tab PO SCH (08:35)
[2022-10-21] MEDS: Potassium Chloride 10 MEQ Tab.ER PO SCH (08:35)
[2022-10-21] MEDS: Budesonide 0.5 MG/2 ML Neb Susp NEB SCH ×2 (08:35→18:03)
[2022-10-21] MEDS: Venlafaxine 37.5 MG Cap.ER PO SCH (08:35)
[2022-10-21] MEDS: Nystatin Susp 100,000 Unit/ML 5 ML UD Cup PO SCH ×4 (08:37→20:04)
[2022-10-21] MEDS: Enoxaparin 40 MG/0.4 ML Syringe SUBCUT SCH (08:38)
[2022-10-21] MEDS: Lisinopril 5 MG Tab PO SCH (08:59)
[2022-10-21] MEDS: Insulin Lispro 100 Units/ML 3 ML Vial SUBCUT SCH ×3 (09:02→17:19)
[2022-10-21] MEDS: Tiotropium Bromide 4 GM Inhalation Spray (2.5mcg/1 dose; 10 doses) INH SCH (09:02)
[2022-10-21] MEDS: Levofloxacin 250 MG Tab PO SCH (11:50)
[2022-10-21] MEDS: Psyllium 0.52 GM Cap PO SCH (20:03)
[2022-10-21] MEDS: Pramipexole 0.5 MG Tab PO SCH (20:04)
[2022-10-21] MEDS: Latanoprost 0.005% Ophth Soln 2.5 ML Bottle EYEBOTH SCH (20:04)
[2022-10-21] MEDS: Montelukast 10 MG Tab PO SCH (20:04)
[2022-10-22] MEDS: Levothyroxine 25 MCG Tab PO SCH (06:11)
[2022-10-22] MEDS: predniSONE 20 MG Tab PO SCH (08:25)
[2022-10-22] MEDS: Psyllium 0.52 GM Cap PO SCH ×2 (08:25→20:26)
[2022-10-22] MEDS: guaiFENesin 600 MG Tab.ER PO SCH ×2 (08:25→20:27)
[2022-10-22] MEDS: Potassium Chloride 10 MEQ Tab.ER PO SCH (08:25)
[2022-10-22] MEDS: Diltiazem 120 MG Cap.CD PO SCH (08:26)
[2022-10-22] MEDS: Venlafaxine 37.5 MG Cap.ER PO SCH (08:26)
[2022-10-22] MEDS: Fluconazole 100 MG Tab PO SCH (08:26)
[2022-10-22] MEDS: Furosemide 20 MG Tab PO SCH (08:26)
[2022-10-22] MEDS: Nystatin Susp 100,000 Unit/ML 5 ML UD Cup PO SCH ×4 (08:29→20:27)
[2022-10-22] MEDS: Ferrous Sulfate 325 MG Tab PO SCH (08:29)
[2022-10-22] MEDS: Tiotropium Bromide 4 GM Inhalation Spray (2.5mcg/1 dose; 10 doses) INH SCH (08:31)
[2022-10-22] MEDS: Enoxaparin 40 MG/0.4 ML Syringe SUBCUT SCH (08:31)
[2022-10-22] MEDS: Budesonide 0.5 MG/2 ML Neb Susp NEB SCH ×2 (08:32→18:38)
[2022-10-22] MEDS: Insulin Lispro 100 Units/ML 3 ML Vial SUBCUT SCH ×3 (11:06→17:27)
[2022-10-22] MEDS: guaiFENesin/Dextromethorphan 100-10 MG/5 ML Soln 5 ML Cup PO PRN (13:06)
[2022-10-22] MEDS: Montelukast 10 MG Tab PO SCH (20:26)
[2022-10-22] MEDS: Pramipexole 0.5 MG Tab PO SCH (20:27)
[2022-10-22] MEDS: Latanoprost 0.005% Ophth Soln 2.5 ML Bottle EYEBOTH SCH (20:30)
[2022-10-23] MEDS: Levothyroxine 25 MCG Tab PO SCH (05:47)
[2022-10-23] MEDS: Acetaminophen 325 MG Tab PO PRN ×2 (06:28→20:33)
[2022-10-23 06:52] LABS: ANION GAP 12.5 mEq/L (7-13)
[2022-10-23] MEDS: Budesonide 0.5 MG/2 ML Neb Susp NEB SCH ×2 (07:18→18:26)
[2022-10-23] MEDS: Enoxaparin 40 MG/0.4 ML Syringe SUBCUT SCH (08:55)
[2022-10-23] MEDS: Insulin Lispro 100 Units/ML 3 ML Vial SUBCUT SCH ×3 (08:55→17:36)
[2022-10-23] MEDS: Venlafaxine 37.5 MG Cap.ER PO SCH (08:56)
[2022-10-23] MEDS: Psyllium 0.52 GM Cap PO SCH ×2 (08:56→20:28)
[2022-10-23] MEDS: Potassium Chloride 10 MEQ Tab.ER PO SCH (08:56)
[2022-10-23] MEDS: Diltiazem 120 MG Cap.CD PO SCH (08:56)
[2022-10-23] MEDS: Ferrous Sulfate 325 MG Tab PO SCH (08:57)
[2022-10-23] MEDS: Nystatin Susp 100,000 Unit/ML 5 ML UD Cup PO SCH (08:57)
[2022-10-23] MEDS: Furosemide 20 MG Tab PO SCH (08:57)
[2022-10-23] MEDS: guaiFENesin 600 MG Tab.ER PO SCH ×2 (08:57→20:28)
[2022-10-23] MEDS: predniSONE 20 MG Tab PO SCH (08:57)
[2022-10-23] MEDS: Fluconazole 100 MG Tab PO SCH (08:57)
[2022-10-23] MEDS: Tiotropium Bromide 4 GM Inhalation Spray (2.5mcg/1 dose; 10 doses) INH SCH (08:58)
[2022-10-23] MEDS: Levofloxacin 250 MG Tab PO SCH (10:27)
[2022-10-23] MEDS: Pramipexole 0.5 MG Tab PO SCH (20:28)
[2022-10-23] MEDS: Montelukast 10 MG Tab PO SCH (20:28)
[2022-10-23] MEDS: Latanoprost 0.005% Ophth Soln 2.5 ML Bottle EYEBOTH SCH (20:30)
[2022-10-23] MEDS: guaiFENesin/Dextromethorphan 100-10 MG/5 ML Soln 5 ML Cup PO PRN (20:34)
[2022-10-24] MEDS: Levothyroxine 25 MCG Tab PO SCH (06:08)
[2022-10-24] MEDS: Acetaminophen 325 MG Tab PO PRN ×2 (06:11→20:41)
[2022-10-24] MEDS: Insulin Lispro 100 Units/ML 3 ML Vial SUBCUT SCH ×3 (07:43→17:14)
[2022-10-24] MEDS: Budesonide 0.5 MG/2 ML Neb Susp NEB SCH ×2 (08:34→19:05)
[2022-10-24] MEDS: Diltiazem 120 MG Cap.CD PO SCH (09:05)
[2022-10-24] MEDS: Fluconazole 100 MG Tab PO SCH (09:05)
[2022-10-24] MEDS: Ferrous Sulfate 325 MG Tab PO SCH (09:06)
[2022-10-24] MEDS: Potassium Chloride 10 MEQ Tab.ER PO SCH (09:06)
[2022-10-24] MEDS: Psyllium 0.52 GM Cap PO SCH ×2 (09:06→20:42)
[2022-10-24] MEDS: Venlafaxine 37.5 MG Cap.ER PO SCH (09:06)
[2022-10-24] MEDS: guaiFENesin 600 MG Tab.ER PO SCH ×2 (09:07→20:43)
[2022-10-24] MEDS: Furosemide 20 MG Tab PO SCH (09:07)
[2022-10-24] MEDS: Enoxaparin 40 MG/0.4 ML Syringe SUBCUT SCH (09:08)
[2022-10-24] MEDS: predniSONE 20 MG Tab PO SCH (09:08)
[2022-10-24] MEDS: Tiotropium Bromide 4 GM Inhalation Spray (2.5mcg/1 dose; 10 doses) INH SCH (09:11)
[2022-10-24] MEDS: Montelukast 10 MG Tab PO SCH (20:41)
[2022-10-24] MEDS: Latanoprost 0.005% Ophth Soln 2.5 ML Bottle EYEBOTH SCH (20:46)
[2022-10-24] MEDS: Pramipexole 0.5 MG Tab PO SCH (21:57)
[2022-10-25] MEDS: Levothyroxine 25 MCG Tab PO SCH (06:20)
[2022-10-25] MEDS: Budesonide 0.5 MG/2 ML Neb Susp NEB SCH ×2 (06:21→18:10)
[2022-10-25] MEDS: Enoxaparin 40 MG/0.4 ML Syringe SUBCUT SCH (08:35)
[2022-10-25] MEDS: Ferrous Sulfate 325 MG Tab PO SCH (08:35)
[2022-10-25] MEDS: Psyllium 0.52 GM Cap PO SCH ×2 (08:35→20:29)
[2022-10-25] MEDS: guaiFENesin 600 MG Tab.ER PO SCH ×2 (08:36→20:29)
[2022-10-25] MEDS: Potassium Chloride 10 MEQ Tab.ER PO SCH (08:36)
[2022-10-25] MEDS: Fluconazole 100 MG Tab PO SCH ×2 (08:36→11:21)
[2022-10-25] MEDS: Furosemide 20 MG Tab PO SCH (08:36)
[2022-10-25] MEDS: predniSONE 20 MG Tab PO SCH (08:36)
[2022-10-25] MEDS: Venlafaxine 37.5 MG Cap.ER PO SCH (08:36)
[2022-10-25] MEDS: Diltiazem 120 MG Cap.CD PO SCH (08:37)
[2022-10-25] MEDS: Insulin Lispro 100 Units/ML 3 ML Vial SUBCUT SCH ×3 (08:37→17:54)
[2022-10-25] MEDS: Tiotropium Bromide 4 GM Inhalation Spray (2.5mcg/1 dose; 10 doses) INH SCH (08:42)
[2022-10-25] MEDS ORDERED: Calcium Carbonate 500 MG Tab.Chew PO ONE (09:58)
[2022-10-25] MEDS: Levofloxacin 250 MG Tab PO SCH (11:30)
[2022-10-25] MEDS: Calcium Carbonate 500 MG Tab.Chew PO PRN ×2 (19:30→22:04)
[2022-10-25] MEDS: Latanoprost 0.005% Ophth Soln 2.5 ML Bottle EYEBOTH SCH (20:27)
[2022-10-25] MEDS: Pramipexole 0.5 MG Tab PO SCH (20:29)
[2022-10-25] MEDS: Montelukast 10 MG Tab PO SCH (20:29)
[2022-10-26] MEDS: Calcium Carbonate 500 MG Tab.Chew PO PRN ×3 (02:51→08:02)
[2022-10-26] MEDS: ALPRAZolam 0.25 MG Tab PO PRN ×2 (02:51→08:16)
[2022-10-26] MEDS: Levothyroxine 25 MCG Tab PO SCH (05:27)
[2022-10-26 07:52] VITALS: PULSE 96
[2022-10-26] MEDS: Budesonide 0.5 MG/2 ML Neb Susp NEB SCH (08:03)
[2022-10-26] MEDS: Tiotropium Bromide 4 GM Inhalation Spray (2.5mcg/1 dose; 10 doses) INH SCH (08:17)
[2022-10-26] MEDS: Insulin Lispro 100 Units/ML 3 ML Vial SUBCUT SCH ×2 (08:20→11:59)
[2022-10-26] MEDS: Enoxaparin 40 MG/0.4 ML Syringe SUBCUT SCH (08:21)
[2022-10-26] MEDS: Furosemide 20 MG Tab PO SCH (08:51)
[2022-10-26] MEDS: guaiFENesin 600 MG Tab.ER PO SCH (08:51)
[2022-10-26] MEDS: Ferrous Sulfate 325 MG Tab PO SCH (08:52)
[2022-10-26] MEDS: predniSONE 20 MG Tab PO SCH (08:52)
[2022-10-26] MEDS: Diltiazem 120 MG Cap.CD PO SCH (08:52)
[2022-10-26] MEDS: Psyllium 0.52 GM Cap PO SCH (08:52)
[2022-10-26] MEDS: Fluconazole 100 MG Tab PO SCH (08:52)
[2022-10-26 08:53] VITALS: BP 152/53
[2022-10-26] MEDS: Venlafaxine 37.5 MG Cap.ER PO SCH (08:53)
[2022-10-26] MEDS: Potassium Chloride 10 MEQ Tab.ER PO SCH (08:53)
[2022-10-26] MEDS ORDERED: GI Cocktail Oral Solution 30 ML PO ONE (09:01)
== END 2022-10-26 13:05 | disposition home or self-care (01) | DRG 189 ==
LOC: UNDOADMIN 12:40 → DL.MS 12:40
PROVIDERS: ADMIT Internal Medicine; ATTEND Internal Medicine
DX: J96.21 Acute and chronic respiratory failure with hypoxia (principal); B37.0 Candidal stomatitis; I13.0 Hypertensive heart and chronic kidney disease with heart failure and stage 1 through stage 4 chronic kidney disease, or unspecified chronic kidney disease; I50.22 Chronic systolic (congestive) heart failure; J44.1 Chronic obstructive pulmonary disease with (acute) exacerbation; F41.9 Anxiety disorder, unspecified; K44.9 Diaphragmatic hernia without obstruction or gangrene; E03.9 Hypothyroidism, unspecified; J02.9 Acute pharyngitis, unspecified; E78.5 Hyperlipidemia, unspecified; K21.9 Gastro-esophageal reflux disease without esophagitis; N18.9 Chronic kidney disease, unspecified; D50.9 Iron deficiency anemia, unspecified; Z96.653 Presence of artificial knee joint, bilateral; Z96.611 Presence of right artificial shoulder joint; Z85.3 Personal history of malignant neoplasm of breast; Z85.828 Personal history of other malignant neoplasm of skin; Z79.899 Other long term (current) drug therapy; Z79.52 Long term (current) use of systemic steroids; Z98.42 Cataract extraction status, left eye; Z98.41 Cataract extraction status, right eye; Z86.16 Personal history of COVID-19; Z90.89 Acquired absence of other organs; Z98.890 Other specified postprocedural states; Z90.721 Acquired absence of ovaries, unilateral; Z98.51 Tubal ligation status; Z90.49 Acquired absence of other specified parts of digestive tract; Z88.5 Allergy status to narcotic agent
CPT/HCPCS: 36415; 80048; 82947; 83735; 83880; 85025; 94640; 97110-GO; 97110-GP; 97116-GP; 97161-GP; 97165-GO; 97530-GO; 97530-GP; 99238; 99306; A9270-GY; J1650; J3490; J7512; J7620-GY

== ENCOUNTER 2023-03-04 12:36 | Emergency (ER) | payer MEDICARE, BC ==
[2023-03-04 13:05] VITALS: BP 132/65; PULSE 71
[2023-03-04] MEDS ORDERED: Mupirocin Oint 22 GM Tube TOP ONE (13:33)
== END 2023-03-04 14:02 | disposition home or self-care (01) ==
LOC: DL.ED 12:36
DX: S50.812A Abrasion of left forearm, initial encounter (principal); J44.9 Chronic obstructive pulmonary disease, unspecified; E03.9 Hypothyroidism, unspecified; I10 Essential (primary) hypertension; Z88.5 Allergy status to narcotic agent; Z86.16 Personal history of COVID-19; Z91.048 Other nonmedicinal substance allergy status; Z87.891 Personal history of nicotine dependence; Z90.49 Acquired absence of other specified parts of digestive tract; Z79.899 Other long term (current) drug therapy; W55.03XA Scratched by cat, initial encounter
CPT/HCPCS: 99283; A9270